=== PATIENT | male | born 1955 | race Caucasian/White ===

== ENCOUNTER → 2018-05-31 06:47 | Outpatient (CLI) | payer OTHER, SELFPAY ==
[2018-04-20 13:05] VITALS: BMI 24.4
--- NOTE | 2018-05-31 06:51 | ECHOD_ITS ---
Reason For Study: Arrhythmia Procedure This was a 2D Doppler, Color Flow transthoracic echocardiogram. The exam was of adequate technical quality. Exam performed in department. Left Ventricle Normal LV size. Left ventricular systolic function is normal. The estimated ejection fraction is 60 %. No evidence for diastolic dysfunction. No regional wall motion abnormalities noted. Right Ventricle Normal RV size. Normal systolic function. Atria Normal left atrium. Normal right atrium. No doppler evidence for ASD. Mitral Valve There is no mitral annular calcification. Normal mitral valve. Trivial mitral valve insufficiency. Tricuspid Valve Normal tricuspid valve. Mild tricuspid valve insufficiency. Right ventricular systolic pressure estimated to be 16 mmHg. Aortic Valve Trisinus/trileaflet aortic valve. Mild diffuse aortic valve thickening. Mild focal aortic valve calcification. Aortic sclerosis, no stenosis. Pulmonic Valve The pulmonic valve is not well visualized. Trivial pulmonic valve insufficiency. Great Vessels Borderline to mildy enlarged aortic root. Pericardium/Pleural No pericardial effusion. MMode/2D Measurements & Calculations LVIDd: 3.7 cm IVSd: 1.4 cm Ao root diam: 3.9 cm LVIDs: 2.2 cm LVPWd: 1.0 cm LA dimension: 3.1 cm RVDd: 3.6 cm FS: 41.2 % LAV(MOD-bp): 51.0 ml LA A4 area: 14.2 cm2 RA A4 area: 14.4 cm2 LAV(MOD-bp) Indexed: 25.9 ml/m2 LAV(MOD-sp2): 60.2 ml LAV(MOD-sp4): 35.1 ml Time Measurements MV dec time: 0.24 sec Doppler Measurements & Calculations MV E max mike: 65.8 cm/sec Lat Peak E' Mike: 5.4 cm/sec Med Peak E' Mike: 4.9 cm/sec MV A max mike: 91.7 cm/sec E/E' lat: 12.1 E/E' med: 13.4 MV E/A: 0.72 MV V2 max: 87.6 cm/sec MV P1/2t max mike: 71.0 cm/sec Ao V2 max: 94.9 cm/sec MV max P.1 mmHg MV P1/2t: 94.6 msec Ao max P.6 mmHg MV V2 mean: 56.2 cm/sec MV dec slope: 219.8 cm/sec2 Ao V2 mean: 71.1 cm/sec MV mean P.4 mmHg MVA(P1/2t): 2.3 cm2 Ao mean P.2 mmHg MV V2 VTI: 24.4 cm Ao V2 VTI: 22.2 cm LV V1 max: 77.6 cm/sec PA V2 max: 87.6 cm/sec TR max mike: 181.3 cm/sec LV V1 max P.4 mmHg TR max P.1 mmHg LV V1 mean P.1 mmHg LV V1 mean: 49.2 cm/sec LV V1 VTI: 17.1 cm Interpretation Summary Left ventricular systolic function is normal. The estimated ejection fraction is 60 %. Trivial mitral valve insufficiency. Mild tricuspid valve insufficiency. Aortic sclerosis, no stenosis. Trivial pulmonic valve insufficiency. Borderline to mildy enlarged aortic root. Right ventricular systolic pressure estimated to be 16 mmHg. No evidence for diastolic dysfunction. Ordering Physician: Olu Sparks Referring Physician: Olu Sparks Performed By: Gatito Cano RCS
--- NOTE | 2018-05-31 10:04 | STRESSREP ---
Stress Test Report Exercise myocardial perfusion stress test. 62-year-old man with a history of abnormal EKG. Stress protocol: Resting EKG demonstrates sinus rhythm with a first-degree AV block and Mobitz type I AV block. The patient exercised according to the regular Jorge protocol for total duration of 10 minutes the maximum heart rate attained was 144 bpm which was 92% of maximum predicted heart rate the maximum workload was 11.7 metabolic equivalents. The patient maintained sinus rhythm throughout the recording. At rest there were nonspecific ST-T wave changes noted with no meet the criteria for ischemia. At peak exercise there was approximately 2 [address] depression noted in lead V5 and V6 as well as lead III and aVF. The above is suggestive of ischemia. No clinical angina was noted. During recovery the ST changes became more upright. The resting blood pressure 146/90 with a peak blood pressure 172/80 mmHg. Myocardial perfusion protocol. 11.8 mCi of technetium 99m sestamibi was injected at rest. Patient exercised according to regular Jorge protocol for total duration of 10 minutes. At peak exercise 33.3 mCi of technetium 99m sestamibi was injected stress images were obtained stress and rest images were reconstructed and compared in the short axis vertical long and horizontal long axis. Gated images were also obtained. Perfusion SPECT analysis Review of his stress images demonstrate mildly reduced perfusion noted in the mid inferior wall. There is evidence of GI attenuation artifact however noted as well. The resting images demonstrate mild improvement though with a GI attenuation artifact. Ischemia in this area cannot be completely excluded. No previous infarct is noted. Gated SPECT analysis: The gated ejection fraction is noted to be 67%. Conclusion: Exercise myocardial perfusion stress test demonstrating the following: First-degree AV block with Mobitz type I AV block. Excellent functional capacity. EKG changes suggestive of ischemia at a high workload. Nuclear images with mild inferior ischemia likely.
== END ==
PROVIDERS: Family Provider Family Medicine; PCP Family Medicine; Referring Provider Internal Medicine Cardiovascular Disease; Visit Provider Internal Medicine Cardiovascular Disease
DX: I44.1 Atrioventricular block, second degree (principal); R94.31 Abnormal electrocardiogram [ECG] [EKG]; E78.2 Mixed hyperlipidemia; Q21.1 Atrial septal defect; R53.83 Other fatigue
CPT/HCPCS: 78452; 93017; 93306; A9500; A4216

== ENCOUNTER 2018-06-17 09:58 | Day surgery (SDC) | payer OTHER, SELFPAY ==
[2018-04-20 13:05] VITALS: BMI 24.4
[2018-06-08 14:03] VITALS: BMI 24.5
--- NOTE | 2018-06-08 15:14 | RAD_ITS ---
STUDY: X-RAY CHEST REASON FOR EXAM: Male, 62 years old. Pre-op evaluation TECHNIQUE: 2 views COMPARISON: March 07, 2016 FINDINGS: The lungs are clear and expanded. There is no demonstrated pleural abnormality. Normal size heart. Normal mediastinum and gabbi. Normal visualized pulmonary arteries. Normal visualized aortic arch and descending thoracic aorta. Normal visualized thoracic spine. Normal visualized ribs, clavicles, and shoulders. There is no demonstrated abnormality of the visualized soft tissue structures of the upper abdomen. RAD/Chest PA and Lateral IMPRESSION: Normal x-ray examination of the chest. No acute findings in the lungs Electronically Signed: Addison Caicedo MD at 4:17 EDT Tel , Service support ,
[2018-06-08 17:36] LABS: Hematocrit 40.2 % (40-54); Hemoglobin 13.6 g/dl (13.0-16.5); Mean Corp Hgb Conc 33.8 g/gl (32-36); Mean Corpuscular Volume 88.5 fL (80-94); Mean Platelet Vol. 10.3 fl (6.2-12.0); Platelet Count 208 K/mm3 (150-450); RBC Distribution Width CV 12.6 % (11.6-14.6); Red Blood Count 4.54 M/mm3 (4.6-6.2); White Blood Count 5.2 K/mm3 (4.4-11.0)
[2018-06-08 17:51] LABS: Scan Indicated on CBC? Y/N NO
[2018-06-08 17:53] LABS: International Normalized Ratio 1.1; Partial Thromboplast Time 27.2 Seconds (24.1-36.2); Prothrombin Time (Protime)PT. 13.8 SECONDS (11.7-14.9)
[2018-06-08 18:35] LABS: Anion Gap 5 (5-15); BUN 27 mg/dL (7-18); BUN/Creat Ratio 21.1 RATIO (10-20); Calcium,Total 8.6 mg/dL (8.5-10.1); Chloride 108 mmol/L (98-107); Creatinine, Serum 1.28 mg/dL (0.70-1.30); EST Glomerular Filtration Rate 60 mL/min (>60); Est Glom Filt Rate - Afr Amer 73 mL/min (>60); Glucose 114 mg/dL (74-106); Sodium Level 138 mmol/L (136-145)
[2018-06-15 10:37] VITALS: BMI 24.5
[2018-06-17] VITALS (20 sets, daily range): BP systolic 134–185; BP diastolic 70–97; PULSE 45–74; RESP 14–24; TEMP 36.6; O2SAT 98–100; BMI 23.6; BMI 24.5
--- NOTE | 2018-06-17 13:16 | CL.D_ITS ---
Patient Name: KIYA NICHOLS Study Date: 06/17/2018 Performing: Olu Sparks MD Ht: 70.86 inches 180 cm : 1955 Wt: 176.37 lbs 80 kg Age: 62 Gender: male BSA: 2 PROCEDURE(S) PERFORMED QP46-XXJ/COR/LV [id number] W OR WO PTCA, SINGLE CORONARY ARTERY CLINICAL PROFILE AND INDICATIONS Indications: Suspected CAD Heart Failure: None Stress/Imaging Stress Test w/SPECT MPI: Yes Result: PositiveStress Test with SPECT MPI: Positive Angina Classification Anginal Classification w/in 2 Weeks: CCS III CAD Presentations: Other: Indigestion; Back Discomfort; Fatigue CONCLUSIONS Normal Left Ventricular End Diastolic Pressure Normal LV size, wall motion,and systolic function LVEF: by LV gram 65 % [place] Multivessel CAD Comment: RCA: catheter engagement: decreased arterial wave form / pressure damping RECOMMENDATIONS Risk factor modification Medical therapy Referred for immediate PCI DESCRIPTION OF PROCEDURE The patient arrived to the procedure lab. The risks and benefits of the procedure as well as a full d escription of our services here and current unavailability of surgical backup were fully explained to the patient and/or their significant other prior to the catheterization. The Timeout was completed, verifying the correct patient and procedure. The patient's procedural site was prepped and draped in the usual fashion. Local anesthetic was given subcutaneously to right radial region with Lidocaine 2% . Using a modified Seldinger technique, arterial access was obtained via the right radial artery, a 6 Fr sheath was inserted. Right Coronary Artery selective angiography was then performed in multiple v iews using a 5 Fr. 4.0 [place] catheter. Left Coronary Artery selective angiography was performed in mu ltiple views using a 5 Fr. 4.0 [place] catheter. Left Coronary Artery selective angiography was perform ed in multiple views using a 5 Fr. JL3.5 catheter. Left Ventriculography was performed in [place] projection using a 5 Fr. Pigtail catheter. LV to AO pullback pressures were then recorded.The art erial sheath was pulled and a TR Band was applied for hemostasis w/ 16ml air CORONARY ANGIOGRAPHY DOMINANCE: Left Dominant LEFT HEART ASSESSMENT Left Ventricular Ejection Fraction: by LV Gram 65 % Normal LV wall motion Normal Left Ventricular End Diastolic Pressure LVEDP: 6 mmHg LEFT MAIN: Proximal: [place] / Eccentric: 25 % Stenosis LEFT ANTERIOR DECENDING ARTERY: Mild luminal irregularities MID LAD: Eccentric: Hazy: 85 % Stenosis SEPTAL: Ostial: Hazy: 90 % Stenosis CIRCUMFLEX ARTERY: Mild luminal irregularities OM 1: Mid - 25 % Stenosis RIGHT CORONARY ARTERY: PROX RCA: 50 - 75 % Stenosis MID RCA: Diffuse: 50 - 75 % Stenosis, Hazy: 85 % Stenosis VALVE FINDINGS: Normal Aortic Valve function Normal Mitral Valve function AORTIC ROOT: Angiographically normal COMPLICATIONS No Complications PROCEDURE MEDICATIONS Fentanyl 50 mcg IV Versed 1 mg IV Oxygen: 2 L/min via nasal cannula Brilinta 180 mg PO 06/17/2018 12:39:11 Angiomax Bolus 12 ml's 06/17/2018 12:39:37 Angiomax 5mg / ml @ 28 ml/hr IV @ 06/17/2018 12:40:08 Heparin diluted in 23cc Heparinized saline. Patient given 10cc IA of this solution. 06/17/2018 11:40: 22 Nitro 200 mcg IC 06/17/2018 13:00:53 Verapamil 2.5mg, Ntg 100mcgs, 2000 units of Heparin diluted in 23cc Heparinized saline. Patient give n 10cc IA of this solution. 06/17/2018 11:40:22 SUMMARY OF HEMODYNAMIC DATA Time AIR REST ECG 10:26:00 ECG 11:22:29 AO 124/62 (84) SA 11:54:38 LV 141/-9, 5 12:13:23 LV 145/-6, 6 12:13:29 LV 140/-6, 7 12:14:45 LVp 148/-4, 9 12:14:59 AOp 149/59 (96) 12:15:05 Signed By Olu Sparks MD On 06/17/2018 13:16:00 Olu Sparks MD
[2018-06-17] MEDS: 0.9% Normal Saline 1,000 ML 75 ML IV (14:00)
--- NOTE | 2018-06-17 14:34 | CL.I_ITS ---
Patient Name: KIYA NICHOLS Study Date: 06/17/2018 Performing: Eloy Calhoun MD Ht: 70.87 inches 180 cm : 1955 Wt: 176.37 lbs 80 kg Age: 62 Gender: male BSA: 2 PROCEDURE(S) PERFORMED [id number] W OR WO PTCA, SINGLE CORONARY ARTERY CLINICAL PROFILE AND CO-MORBIDITIES Indications: Suspected CAD Heart Failure: None Stress/Imaging Stress Test w/SPECT MPI: Yes Result: Positive Stress Test with SPECT MPI: Positive Angina Classification Anginal Classification w/in 2 Weeks: CCS III CAD Presentations: Other: Indigestion; Back Discomfort; Fatigue CONCLUSIONS Successful PTCA/LUCIO Mid LAD with a 2.5x17 Elunir LUCIO RECOMMENDATIONS Highly recommend quitting all tobacco products Follow up with primary computer aided design drafter Risk factor modification ASA Indefinitley Plavix for at least 12 months Routine post interventional care Refer for Outpatient Cardiac Rehab Manual sheath removal per protocol DESCRIPTION OF PROCEDURE The patient arrived to the procedure lab. The risks and benefits of the procedure as well as a full d escription of our services here and current unavailability of surgical backup were fully explained to the patient and/or their significant other prior to the catheterization. The Timeout was completed, verifying the correct patient and procedure. The patient's procedural site was prepped and draped in the usual fashion. Local anesthetic was given subcutaneously to right radial region with Lidocaine 2% Using a modified Seldinger technique,arterial access was obtained via the right radial artery, a 6Fr sheath was inserted. Right Coronary Artery selective angiography was then performed in multiple view s using a 5 Fr. 4.0 [place] catheter. Left Coronary Artery selective angiography was performed in multi ple views using a 5 Fr. 4.0 [place] catheter. Left Coronary Artery selective angiography was performed in multiple views using a 5 Fr. JL3.5 catheter. Left Ventriculography was performed in [place] projection using a 5 Fr. Pigtail catheter. LV to AO pullback pressures were then recorded.The images were reviewed and options discussed. A decision was then made to proceed with an Intervention, IVUS o r other adjunct procedure. JL 3.5 Guide catheter was inserted and engaged into the LCA. BMW Guide wire was advanced to the L AD. Angiogram performed pre balloon dilatation. Emerge 2.50x12 Balloon catheter was inserted. PTCA ba lloon inflated at 12 atms for 25 secs. Angiogram performed post balloon dilatation. Elunir 2.5x17 Doug g Eluting stent was inserted. Angiogram performed post stent deployment. The arterial sheath was pu lled and a TR Band was applied for hemostasis w/ 16ml air INTERVENTION INFORMATION LESION SITE: LAD (Mid) Lesion Complexity: Non-High/Non-C, chronic total occlusion: No, lesion at bifurcation: No, thrombus p resent: No, lesion length: 10 mm, culprit lesion: Yes Pre Stenosis: 85% % Pre intervention ELICIA flow: 3 PROCEDURE: Mid LAD- Drug Eluting Stent with pre dilatation. Post Stenosis: 0 % Post intervention ELICIA flow: 3 Lesion Devices: Juanjo Sci EMERGE MR 2.50x12 BALLOON Cardinal Elunir LUCIO RX 2.5x17 COMPLICATIONS No Complications PROCEDURE MEDICATIONS Fentanyl 50 mcg IV Versed 1 mg IV Oxygen: 2 L/min via nasal cannula Brilinta 180 mg PO 06/17/2018 12:39:11 Angiomax Bolus 12 ml's 06/17/2018 12:39:37 Angiomax 5mg / ml @ 28 ml/hr IV @ 06/17/2018 12:40:08 Heparin diluted in 23cc Heparinized saline. Patient given 10cc IA of this solution. 06/17/2018 11:40: 22 Nitro 200 mcg IC 06/17/2018 13:00:53 Verapamil 2.5mg, Ntg 100mcgs, 2000 units of Heparin diluted in 23cc Heparinized saline. Patient give n 10cc IA of this solution. 06/17/2018 11:40:22 SUMMARY OF HEMODYNAMIC DATA Time AIR REST ECG 10:26:00 ECG 11:22:29 AO 124/62 (84) SA 11:54:38 LV 141/-9, 5 12:13:23 LV 145/-6, 6 12:13:29 LV 140/-6, 7 12:14:45 LVp 148/-4, 9 12:14:59 AOp 149/59 (96) 12:15:05 RM AIR REST 13:15:17 Signed By Eloy Calhoun MD On 06/17/2018 14:33:42 Eloy Calhoun MD
[2018-06-17 14:51] LABS: Bedside Glucose 107 mg/dL (70-110)
--- NOTE | 2018-06-17 15:00 | EKG12_ITS ---
Test Reason : CHEST PRESSURE Blood Pressure : / mmHG Vent. Rate : 063 BPM Atrial Rate : 063 BPM P-R Int : 314 ms QRS Dur : 070 ms QT Int : 396 ms P-R-T Axes : 052 013 020 degrees QTc Int : 405 ms Sinus rhythm with 1st degree A-V block Otherwise normal ECG Confirmed by TAMIKA LEYVA, OLU ([id number]), newspaper photo editor DAYA PATRICIA ([id number]) on 06/27/2018 12:09:10 PM Referred By: Olu Lundberg Confirmed By:OLU LUNDBERG MD
[2018-06-17] MEDS: Losartan Potassium 25 MG Tablet PO (15:39)
--- NOTE | 2018-06-17 15:43 | CRPHASE1 ---
Patient Communication PHII Cardiac Rehab Discussed with Patient:: Yes Guide to Cardiac Rehab Given to Patient:: Yes Cardiac Rehab Facility Choice List Given to Patient:: Yes Choice Program [facility] CR PHII:: Communication Given to CR - pt chooses [facility] Gis Developer:: Olu Sparks Phase II Cardiac Rehab:: No - pending Sessions:: 36 sessions - 3 days/wk, 12 weeks Risk Factors/Lifestyle Hx Diabetes Mellitus Type 2: Yes Hx Dyslipidemia: Yes Height: 1.8 m Weight:: 79.832 kg BMI: 24.5 Family History: Family History (Last Reviewed 04/20/18 @ 13:12 by Gemma Gramajo) Mother CHF (congestive heart failure) CAD (coronary artery disease) Brother Hypertension Diabetes Myocardial infarction Phase I Education Given On:: [place], Nutrition, Antiplatelet medication, CHF, Smoking cessation, Diabetes - Type I, Diabetes - Type II Issues Affecting Care:: None Knowledge of Condition:: Yes Hospital Course Cardiac Cath Date:: 06/17/18 Medical/Surgical History Diabetes Type II:: Yes Hypertension:: Yes Dyslipidemia:: Yes PTCA:: Yes Discharge/Home/Social Eval Marital Status: Cardiac Rehabilitation Info Cardiac Rehabilitation Program Information: Cardiac Rehabilitation is important for patients like you who are recovering from a heart problem. Cardiac rehabilitation programs are recognized as integral to the continued care of the patient with coronary heart disease. The cardiac rehabilitation program is designed to optimize a patient's physical, psychological, and social functioning. Health customer care agent work in cardiac rehabilitation programs and assist you with getting the treatments you need to get stronger and healthier - like exercise, healthy eating habits, and medications. Cardiac rehabilitation has been show to help people with heart problems live longer and have better life enjoyment than people who do not go to cardiac rehabilitation. Please contact the Cardiac Rehabilitation Program at [facility] at in two weeks if you have not heard from them.
--- NOTE | 2018-06-17 15:46 | CRPHASE1_ITS ---
Addendum entered and electronically signed by Enrique Ramos CRT, CUSTOMER SUCCESS INTERN, BS 06/28/18 13:35: Patient was referred to CR Phase II prior to discharge from [facility] following his PCI intervention and is actively enrolled in CR at this present time. Original Note: Patient Communication PHII Cardiac Rehab Discussed with Patient:: Yes Guide to Cardiac Rehab Given to Patient:: Yes Cardiac Rehab Facility Choice List Given to Patient:: Yes Choice Program [facility] CR PHII:: Communication Given to CR - pt chooses [facility] Nascar Driver:: Olu Sparks Refer Phase II Cardiac Rehab:: No - pending Sessions:: 36 sessions - 3 days/wk, 12 weeks Risk Factors/Lifestyle Hx Diabetes Mellitus Type 2: Yes Hx Dyslipidemia: Yes Height: 1.8 m Weight:: 79.832 kg BMI: 24.5 Family History: Family History (Last Reviewed 04/20/18 @ 13:12 by Gemma Gramajo) Mother CHF (congestive heart failure) CAD (coronary artery disease) Brother Hypertension Diabetes Myocardial infarction Phase I Education Given On:: [place], Nutrition, Antiplatelet medication, CHF, Smoking cessation, Diabetes - Type I, Diabetes - Type II Issues Affecting Care:: None Knowledge of Condition:: Yes Hospital Course Cardiac Cath Date:: 06/17/18 Medical/Surgical History Diabetes Type II:: Yes Hypertension:: Yes Dyslipidemia:: Yes PTCA:: Yes Discharge/Home/Social Eval Marital Status: Cardiac Rehabilitation Info Cardiac Rehabilitation Program Information: Cardiac Rehabilitation is important for patients like you who are recovering from a heart problem. Cardiac rehabilitation programs are recognized as integral to the continued care of the patient with coronary heart disease. The cardiac rehabilitation program is designed to optimize a patient's physical, psychological, and social functioning. Health rn palliative care work in cardiac rehabilitation programs and assist you with getting the treatments you need to get stronger and healthier - like exercise, healthy eating habits, and medications. Cardiac rehabilitation has been show to help people with heart problems live longer and have better life enjoyment than people who do not go to cardiac rehabilitation. Please contact the Cardiac Rehabilitation Program at [facility] at in two weeks if you have not heard from them.
--- NOTE | 2018-06-17 15:46 | CRPH1.INSTRU ---
General Education CAD and cardiac anatomy and function:: Patient communicates acknowledgment Explanation of diagnoses and procedures:: Patient communicates acknowledgment Sign/Symptoms of NH:: Patient communicates acknowledgment Antiplatelet therapy: Patient communicates acknowledgment Proper use of NTG-SL: Not instructed Emergency procedures and activation of EMS: Patient communicates acknowledgment Compliance of all prescribed medications: Patient communicates acknowledgment Smoking Nicotine/Smoking Response Code:: Patient communicates acknowledgment Dyslipidemia Dyslipidemia Response Code:: Patient communicates acknowledgment Overweight/Obesity Overweight/Obesity:: Patient communicates acknowledgment Hypertension Recommendations Include:: Maintain BP <130/85, BP <130/80 if diabetic, DASH dietary guidelines, Decrease/maintain normal body weight, Moderation of ETOH Hypertension:: Patient communicates acknowledgment Heart Disease Heart Disease Response Code:: Patient communicates acknowledgment Diabetes Patient Diabetes Risk Factors Are:: Elevated blood sugars Recommendations Include:: Maintain fasting blood sugars 70-110 md/dL, Maintain HgbA1c of 6% or less, Monitor blood sugar as prescribed, Diabetic dietary guidelines, Decrease/maintain body weight Diabetes:: Patient communicates acknowledgment Metabolic Syndrome Metabolic Syndrome Response Code:: Patient communicates acknowledgment Sedentary Sedentary Response Code:: Patient communicates acknowledgment Stress Stress Response Code:: Patient communicates acknowledgment
[2018-06-17] MEDS: Isosorbide Mononitrate 30 MG Tablet PO (17:05)
[2018-06-17] MEDS: amLODIPine 2.5 MG Tablet PO (21:20)
[2018-06-17 21:25] LABS: Bedside Glucose 134 mg/dL (70-110)
[2018-06-18] VITALS (16 sets, daily range): BP systolic 112–143; BP diastolic 49–77; PULSE 34–67; RESP 11–20; TEMP 36.4–36.7; O2SAT 97–100
[2018-06-18 04:38] LABS: Anion Gap 8 (5-15); BUN 24 mg/dL (7-18); BUN/Creat Ratio 18.3 RATIO (10-20); Calcium,Total 8.3 mg/dL (8.5-10.1); Chloride 112 mmol/L (98-107); Creatinine, Serum 1.31 mg/dL (0.70-1.30); EST Glomerular Filtration Rate 58 mL/min (>60); Est Glom Filt Rate - Afr Amer 71 mL/min (>60); Estimated Creatinine Clearance 60.67 ml/min; Glucose 142 mg/dL (74-106); Potassium 4.1 mmol/L (3.5-5.1); Sodium Level 143 mmol/L (136-145)
[2018-06-18 04:44] LABS: Hematocrit 34.7 % (40-54); Hemoglobin 11.9 g/dl (13.0-16.5)
--- NOTE | 2018-06-18 05:55 | EKG12_ITS ---
Test Reason : AM Blood Pressure : / mmHG Vent. Rate : 044 BPM Atrial Rate : 057 BPM P-R Int : 000 ms QRS Dur : 070 ms QT Int : 430 ms P-R-T Axes : 057 011 028 degrees QTc Int : 367 ms Sinus bradycardia with 2nd degree A-V block (Mobitz I) Abnormal ECG Confirmed by TAMIKA LEYVA, OLU ([id number]), photo editor DAYA PATRICIA ([id number]) on 06/27/2018 12:06:57 PM Referred By: Olu Lundberg Confirmed By:OLU LUNDBERG MD
[2018-06-18] MEDS: Pantoprazole Sodium 40 MG Tablet PO (07:38)
[2018-06-18 08:05] LABS: Bedside Glucose 125 mg/dL (70-110)
[2018-06-18] MEDS: Aspirin 81 MG TAB.CHEW PO (09:09)
[2018-06-18] MEDS: Clopidogrel Bisulfate 75 MG Tablet PO (09:10)
[2018-06-18] MEDS: Isosorbide Mononitrate 30 MG Tablet PO (09:11)
--- NOTE | 2018-06-18 10:00 | EKG12_ITS ---
Test Reason : POST PCI Blood Pressure : / mmHG Vent. Rate : 044 BPM Atrial Rate : 051 BPM P-R Int : 000 ms QRS Dur : 078 ms QT Int : 418 ms P-R-T Axes : 065 047 051 degrees QTc Int : 357 ms Sinus bradycardia with 2nd degree A-V block (Mobitz I) Abnormal ECG Confirmed by TAMIKA LEYVA, OLU ([id number]), editor map DAYA PATRICIA ([id number]) on 06/27/2018 12:09:55 PM Referred By: Olu Lundberg Confirmed By:OLU LUNDBERG MD
[2018-06-18] MEDS: Losartan Potassium 50 MG Tablet PO (10:42)
--- NOTE | 2018-06-18 11:30 | PCM.DC ---
- Discharge Diagnoses Current Active Problems: Current Active and Chronic Problems (Last Updated 06/17/18 @ 18:41 by Kirstin Khan) Atherosclerotic heart disease of [place] coronary artery without angina pectoris (Chronic) Successful PTCA/LUCIO Mid LAD with a 2.5x[address]. Calhoun @ [facility] 06/17/2018 History of left heart catheterization (Chronic 06/17/18) Per PFM @ [facility] Stented coronary artery (Chronic 06/17/18) Successful PTCA/LUCIO Mid LAD with a 2.5x[address]un[address]. Calhoun @ [facility] 06/17/18 Reason(s) for Visit for Discharge Instructions: Abnormal stress test. Diagnostic cardiac catheterization You will use the following diet at home:: Cardiac Your food should be the consistency of: Regular Discharge Activity: May Drive - Until 06-20-18, May Shower - Today, May Take a Tub Bath - May not take a tub bath for 7 days May resume sexual activity in: 2 weeks Weight Bearing Status: - - Avoid heavy exertional activity with respect to the right upper extremity until 06-20-18 Call your doctor if your incision/area has: Continuous Slow Oozing, Sudden Increased Bleeding, Increased Pain/ Swelling, Increased Redness, Foul Smelling Discharge Call your doctor if you observe: Fever of 101 or Higher, Shortness of breath, Dizziness, Fainting spells, Chest pain Change Dressing in (Days):: 1 Remove Dressing in (days):: 1 Cleanse incision/area with: Soap & Water Pending Tests on Discharge: Outpatient cardiovascular office to confirm outpatient cardiovascular visit and outpatient cardiac rehabilitation Allergies/Adverse Reactions: Allergies etodolac [Etodolac] Allergy (Verified 06/08/18 14:10) Hives metformin Adverse Reaction (Verified 06/08/18 14:10) Nausea Medications to take at Discharge Saxagliptin Hydrochloride [Onglyza] 5 mg PO DAILY 07/26/13 Meloxicam [Mobic] 15 mg PO DAILY 03/07/16 aspirin 81 mg tablet,delayed release 81 mg PO DAILY 04/19/18 clopidogrel 75 mg tablet 75 mg PO DAILY #30 tab 06/08/18 Meloxicam 15 mg PO DAILY 06/17/18 Aspirin [Aspirin, Baby] 81 mg PO DAILY@0800 tab.chew 06/18/18 Clopidogrel Bisulfate [Plavix] 75 mg PO DAILY tablet 06/18/18 Isosorbide Mononitrate [Imdur] 30 mg PO DAILY #30 tablet 06/18/18 Losartan Potassium [Cozaar] 50 mg PO DAILY #30 tablet 06/18/18 Pantoprazole Sodium [Protonix] 40 mg PO DAILY #30 tablet 06/18/18 Saxagliptin Hydrochloride [Onglyza] 5 mg PO DAILY tablet 06/18/18 The following prescriptions were given: Isosorbide Mononitrate [Imdur] 30 mg PO DAILY #30 tablet Losartan Potassium [Cozaar] 50 mg PO DAILY #30 tablet Pantoprazole Sodium [Protonix] 40 mg PO DAILY #30 tablet Orders to be completed after discharge: Phase II, Outpatient Cardiac Rehab Location: None Selected Primary Care Physician: Micheal Bruce III, MD [Primary Care Provider] - Test Results: Test results from this visit will be discussed in further detail at your follow-up appointment, if applicable. Please Follow Up With: Olu Sparks MD When: As scheduled
--- NOTE | 2018-06-18 11:33 | DCINST_ITS ---
- Discharge Diagnoses Current Active Problems: Current Active and Chronic Problems (Last Updated 06/17/18 @ 18:41 by Kirstin Khan) Atherosclerotic heart disease of [place] coronary artery without angina pectoris (Chronic) Successful PTCA/LUCIO Mid LAD with a 2.5x[address] Calhoun @ [facility] 06/17/2018 History of left heart catheterization (Chronic 06/17/18) Per PFM @ [facility] Stented coronary artery (Chronic 06/17/18) Successful PTCA/LUCIO Mid LAD with a 2.5x[address] Calhoun @ [facility] 06/17/18 Reason(s) for Visit for Discharge Instructions: Abnormal stress test. Diagnostic cardiac catheterization You will use the following diet at home:: Cardiac Your food should be the consistency of: Regular Discharge Activity: May Drive - Until 06-20-18, May Shower - Today, May Take a Tub Bath - May not take a tub bath for 7 days May resume sexual activity in: 2 weeks Weight Bearing Status: - - Avoid heavy exertional activity with respect to the right upper extremity until 06-20-18 Call your doctor if your incision/area has: Continuous Slow Oozing, Sudden Increased Bleeding, Increased Pain/ Swelling, Increased Redness, Foul Smelling Discharge Call your doctor if you observe: Fever of 101 or Higher, Shortness of breath, Dizziness, Fainting spells, Chest pain Change Dressing in (Days):: 1 Remove Dressing in (days):: 1 Cleanse incision/area with: Soap & Water Pending Tests on Discharge: Outpatient cardiovascular office to confirm outp atient cardiovascular visit and outpatient cardiac rehabilitation Allergies/Adverse Reactions: Allergies etodolac [Etodolac] Allergy (Verified 06/08/18 14:10) Hives metformin Adverse Reaction (Verified 06/08/18 14:10) Nausea Medications to take at Discharge Saxagliptin Hydrochloride [Onglyza] 5 mg PO DAILY 07/26/13 Meloxicam [Mobic] 15 mg PO DAILY 03/07/16 aspirin 81 mg tablet,delayed release 81 mg PO DAILY 04/19/18 clopidogrel 75 mg tablet 75 mg PO DAILY #30 tab 06/08/18 Meloxicam 15 mg PO DAILY 06/17/18 Aspirin [Aspirin, Baby] 81 mg PO DAILY@0800 tab.chew 06/18/18 Clopidogrel Bisulfate [Plavix] 75 mg PO DAILY tablet 06/18/18 Isosorbide Mononitrate [Imdur] 30 mg PO DAILY #30 tablet 06/18/18 Losartan Potassium [Cozaar] 50 mg PO DAILY #30 tablet 06/18/18 Pantoprazole Sodium [Protonix] 40 mg PO DAILY #30 tablet 06/18/18 Saxagliptin Hydrochloride [Onglyza] 5 mg PO DAILY tablet 06/18/18 The following prescriptions were given: Isosorbide Mononitrate [Imdur] 30 mg PO DAILY #30 tablet Losartan Potassium [Cozaar] 50 mg PO DAILY #30 tablet Pantoprazole Sodium [Protonix] 40 mg PO DAILY #30 tablet Orders to be completed after discharge: Phase II, Outpatient Cardiac Rehab Location: None Selected Primary Care Physician: Micheal Bruce III, MD [Primary Care Provider] - Test Results: Test results from this visit will be discussed in further detail at your follow- up appointment, if applicable. Please Follow Up With: Olu Sparks MD When: As scheduled
--- NOTE | 2018-06-18 11:34 | PCM.DC.SUM ---
Discharge Date and Diagnosis Date of Admission: 06/17/18 Date of Discharge: 06/18/18 - Primary Discharge Diagnosis Abnormal stress test; CAD; status post LAD PCI - Secondary Discharge Diagnosis Chronic Problems (Last Updated 06/17/18 @ 18:42 by Kirstin Khan) Atherosclerotic heart disease of [place] coronary artery without angina pectoris (Chronic) Successful PTCA/LUCIO Mid LAD with a 2.5x[address] Calhoun @ [facility] 06/17/2018 History of left heart catheterization (Chronic 06/17/18) Per PFM @ [facility] Stented coronary artery (Chronic 06/17/18) Successful PTCA/LUCIO Mid LAD with a 2.5x[address] Calhoun @ [facility] 06/17/18 Hypertension (Chronic) Fatigue (Chronic) Patent foramen ovale (Chronic) Type 2 diabetes mellitus (Chronic) Mixed hyperlipidemia (Chronic) Mobitz type 1 second degree AV block (Chronic) Diabetic neuropathy (Chronic) Hospital Course and Treatment Operations: None Procedures: Cardiac catheterization, - - Cardiac intervention: LAD PCI/LUCIO Summary of Care Provided: The patient is a 62 year old presented for evaluation of an abnormal exercise tolerance test/nuclear imaging. The patient underwent diagnostic cardiac catheterization on 06-17-18. The patient was noted to have overall preserved left ventricular size, wall motion, and systolic function. The patient was noted to have angiographically significant appearing LAD disease and RCA disease-small nondominant vessel. The patient subsequently underwent LAD PCI/LUCIO. The patient resided in the ICU overnight with no obvious adverse post procedure related events. On 06-18-18 it was felt the patient could be released home for continued outpatient cardiac rehabilitation and outpatient cardiovascular follow-up. Of note, the patient does note additional symptoms compatible with gastroesophageal reflux disorder. Thus based upon the patient's clinical course it was felt that he should be referred to gastroenterology for further evaluation and care. [] Subjective: The patient is awake and alert and in no acute distress. - Physical Exam General: Alert, Oriented x3, Cooperative, No apparent distress HEENT: Atraumatic, PERRLA, EOMI, Normocephalic Oral: Moist Mucosa Neck: Supple, No JVD Lungs: Clear to auscultation Cardiovascular: Regular rate, Regular Rhythm, Normal S1, Normal S2 Abdomen: Bowel Sounds Present, Soft, Non Tender Extremities: No clubbing, No cyanosis, No edema Psych/Mental Status: Normal Affect Comment: Right radial artery area: Pulses 2+/4+; no bruit; no hematoma Vital Signs Temp Pulse Resp BP Pulse Ox 98 F 60 14 124/61 H 97 06/18/18 08:00 06/18/18 10:00 06/18/18 10:00 06/18/18 10:00 06/18/18 10:00 Oxygen Delivery Method Room Air Weight: 175 lb 4.28 oz Body Mass Index (BMI) 23.6 Finger Stick Blood Glucose 131 Intake and Output for Last 24 Hours 06/16/18 06/17/18 06/18/18 23:59 23:59 23:59 Intake Total 1400 / 1400 349.5 / 349.5 Balance 1400 / 1400 349.5 / 349.5 Laboratory Tests Past 24 Hrs 06/18/18 06/18/18 04:15 04:15 Hgb 11.9 L Hct 34.7 L Sodium 143 Potassium 4.1 Chloride 112 H Carbon Dioxide 23.0 Anion Gap 8 BUN 24 H Creatinine 1.31 H Estim Creat Clear Calc 60.67 Est GFR (MDRD) Af Amer 71 Est GFR (MDRD) Non-Af 58 L BUN/Creatinine Ratio 18.3 Glucose 142 H Calcium 8.3 L POC Glucose 06/18/18 06/17/18 06/17/18 07:42 21:18 14:46 POC Glucose 125 H 134 H 107 Discharge Activity: May Drive - Until 06-20-18, May Shower - Today, May Take a Tub Bath - May not take a tub bath for 7 days May resume sexual activity in: 2 weeks Weight Bearing Status: - - Avoid heavy exertional activity with respect to the right upper extremity until 06-20-18 Call your doctor if your incision/area has: Continuous Slow Oozing, Sudden Increased Bleeding, Increased Pain/ Swelling, Increased Redness, Foul Smelling Discharge Call your doctor if you observe: Fever of 101 or Higher, Shortness of breath, Dizziness, Fainting spells, Chest pain Change Dressing in (Days):: 1 Remove Dressing in (days):: 1 Cleanse incision/area with: Soap & Water Home Medications: Medications to take at Discharge Saxagliptin Hydrochloride [Onglyza] 5 mg PO DAILY 07/26/13 Meloxicam [Mobic] 15 mg PO DAILY 03/07/16 aspirin 81 mg tablet,delayed release 81 mg PO DAILY 04/19/18 clopidogrel 75 mg tablet 75 mg PO DAILY #30 tab 06/08/18 Meloxicam 15 mg PO DAILY 06/17/18 Aspirin [Aspirin, Baby] 81 mg PO DAILY@0800 tab.chew 06/18/18 Clopidogrel Bisulfate [Plavix] 75 mg PO DAILY tablet 06/18/18 Isosorbide Mononitrate [Imdur] 30 mg PO DAILY #30 tablet 06/18/18 Losartan Potassium [Cozaar] 50 mg PO DAILY #30 tablet 06/18/18 Pantoprazole Sodium [Protonix] 40 mg PO DAILY #30 tablet 06/18/18 Saxagliptin Hydrochloride [Onglyza] 5 mg PO DAILY tablet 06/18/18 Following Prescrptions Were Given to Patient: Isosorbide Mononitrate [Imdur] 30 mg PO DAILY #30 tablet Losartan Potassium [Cozaar] 50 mg PO DAILY #30 tablet Pantoprazole Sodium [Protonix] 40 mg PO DAILY #30 tablet Other Amb Orders: Phase II, Outpatient Cardiac Rehab Location: None Selected Primary Care Physician: Micheal Bruce III, MD [Primary Care Provider] - Please Follow Up With: Olu Sparks MD When: As scheduled Disposition: Home Minutes spent on discharge:: 45 Patient Condition:: Stable Medical Necessity - Tobacco Use Smoking Status: Former smoker Meaningful Use Info Meaningful Use Diagnoses (Choose all that apply): None applicable
--- NOTE | 2018-06-18 11:37 | DS.PCM_ITS ---
Discharge Date and Diagnosis Date of Admission: 06/17/18 Date of Discharge: 06/18/18 - Primary Discharge Diagnosis Abnormal stress test; CAD; status post LAD PCI - Secondary Discharge Diagnosis Chronic Problems (Last Updated 06/17/18 @ 18:42 by Kirstin Khan) Atherosclerotic heart disease of [place] coronary artery without angina pectoris (Chronic) Successful PTCA/LUCIO Mid LAD with a 2.5x[address] Calhoun @ [facility] 06/17/2018 History of left heart catheterization (Chronic 06/17/18) Per PFM @ [facility] Stented coronary artery (Chronic 06/17/18) Successful PTCA/LUCIO Mid LAD with a 2.5x[address] per [address]. Calhoun @ [facility] 06/17/18 Hypertension (Chronic) Fatigue (Chronic) Patent foramen ovale (Chronic) Type 2 diabetes mellitus (Chronic) Mixed hyperlipidemia (Chronic) Mobitz type 1 second degree AV block (Chronic) Diabetic neuropathy (Chronic) Hospital Course and Treatment Operations: None Procedures: Cardiac catheterization, - - Cardiac intervention: LAD PCI/LUCIO Summary of Care Provided: The patient is a 62 year old presented for evaluation of an abnormal exercise tolerance test/nuclear imaging. The patient underwent diagnostic cardiac cat heterization on 06-17-18. The patient was noted to have overall preserved left ventricular size, wall motion, and systolic function. The patient was noted to have angiographically significant appearing LAD disease and RCA disease-small nondominant vessel. The patient subsequently underwent LAD PCI/LUCIO. The patient resided in the ICU overnight with no obvious adverse post procedure related events. On 06-18-18 it was felt the patient could be released home for continued outpatient cardiac rehabilitation and outpatient cardiovascular follow-up. Of note, the patient does note additional symptoms compatible with gastroesophageal reflux disorder. Thus based upon the patient's clinical course it was felt that he should be referred to gastroenterology for further evaluation and care. [] Subjective: The patient is awake and alert and in no acute distress. - Physical Exam General: Alert, Oriented x3, Cooperative, No apparent distress HEENT: Atraumatic, PERRLA, EOMI, Normocephalic Oral: Moist Mucosa Neck: Supple, No JVD Lungs: Clear to auscultation Cardiovascular: Regular rate, Regular Rhythm, Normal S1, Normal S2 Abdomen: Bowel Sounds Present, Soft, Non Tender Extremities: No clubbing, No cyanosis, No edema Psych/Mental Status: Normal Affect Comment: Right radial artery area: Pulses 2+/4+; no bruit; no hematoma Vital Signs Temp Pulse Resp BP Pulse Ox 98 F 60 14 124/61 H 97 06/18/18 08:00 06/18/18 10:00 06/18/18 10:00 06/18/18 10:00 06/18/18 10:00 Oxygen Delivery Method Room Air Weight: 175 lb 4.28 oz Body Mass Index (BMI) 23.6 Finger Stick Blood Glucose 131 Intake and Output for Last 24 Hours 06/16/18 06/17/18 06/18/18 23:59 23:59 23:59 Intake Total 1400 / 1400 349.5 / 349.5 Balance 1400 / 1400 349.5 / 349.5 Laboratory Tests Past 24 Hrs 06/18/18 06/18/18 04:15 04:15 Hgb 11.9 L Hct 34.7 L Sodium 143 Potassium 4.1 Chloride 112 H Carbon Dioxide 23.0 Anion Gap 8 BUN 24 H Creatinine 1.31 H Estim Creat Clear Calc 60.67 Est GFR (MDRD) Af Amer 71 Est GFR (MDRD) Non-Af 58 L BUN/Creatinine Ratio 18.3 Glucose 142 H Calcium 8.3 L POC Glucose 06/18/18 06/17/18 06/17/18 07:42 21:18 14:46 POC Glucose 125 H 134 H 107 Discharge Activity: May Drive - Until 06-20-18, May Shower - Today, May Take a Tub Bath - May not take a tub bath for 7 days May resume sexual activity in: 2 weeks Weight Bearing Status: - - Avoid heavy exertional activity with respect to the right upper extremity until 06-20-18 Call your doctor if your incision/area has: Continuous Slow Oozing, Sudden Increased Bleeding, Increased Pain/ Swelling, Increased Redness, Foul Smelling Discharge Call your doctor if you observe: Fever of 101 or Higher, Shortness of breath, Dizziness, Fainting spells, Chest pain Change Dressing in (Days):: 1 Remove Dressing in (days):: 1 Cleanse incision/area with: Soap & Water Home Medications: Medications to take at Discharge Saxagliptin Hydrochloride [Onglyza] 5 mg PO DAILY 07/26/13 Meloxicam [Mobic] 15 mg PO DAILY 03/07/16 aspirin 81 mg tablet,delayed release 81 mg PO DAILY 04/19/18 clopidogrel 75 mg tablet 75 mg PO DAILY #30 tab 06/08/18 Meloxicam 15 mg PO DAILY 06/17/18 Aspirin [Aspirin, Baby] 81 mg PO DAILY@0800 tab.chew 06/18/18 Clopidogrel Bisulfate [Plavix] 75 mg PO DAILY tablet 06/18/18 Isosorbide Mononitrate [Imdur] 30 mg PO DAILY #30 tablet 06/18/18 Losartan Potassium [Cozaar] 50 mg PO DAILY #30 tablet 06/18/18 Pantoprazole Sodium [Protonix] 40 mg PO DAILY #30 tablet 06/18/18 Saxagliptin Hydrochloride [Onglyza] 5 mg PO DAILY tablet 06/18/18 Following Prescrptions Were Given to Patient: Isosorbide Mononitrate [Imdur] 30 mg PO DAILY #30 tablet Losartan Potassium [Cozaar] 50 mg PO DAILY #30 tablet Pantoprazole Sodium [Protonix] 40 mg PO DAILY #30 tablet Other Amb Orders: Phase II, Outpatient Cardiac Rehab Location: None Selected Primary Care Physician: Micheal Bruce III, MD [Primary Care Provider] - Please Follow Up With: Olu Sparks MD When: As scheduled Disposition: Home Minutes spent on discharge:: 45 Patient Condition:: Stable Medical Necessity - Tobacco Use Smoking Status: Former smoker Meaningful Use Info Meaningful Use Diagnoses (Choose all that apply): None applicable
== END 2018-06-18 12:30 | disposition home or self-care (01) ==
LOC: CLSP 09:59 → ICU 06-21 07:08
PROVIDERS: Nurse Practitioner Family; Family Provider Family Medicine; PCP Family Medicine; Referring Provider Internal Medicine Cardiovascular Disease; Visit Provider Internal Medicine Cardiovascular Disease
DX: I25.10 Atherosclerotic heart disease of native coronary artery without angina pectoris (principal); Q21.1 Atrial septal defect; E11.22 Type 2 diabetes mellitus with diabetic chronic kidney disease; I12.9 Hypertensive chronic kidney disease with stage 1 through stage 4 chronic kidney disease, or unspecified chronic kidney disease; N18.9 Chronic kidney disease, unspecified; E11.40 Type 2 diabetes mellitus with diabetic neuropathy, unspecified; I44.1 Atrioventricular block, second degree; E78.2 Mixed hyperlipidemia; K21.9 Gastro-esophageal reflux disease without esophagitis; R94.39 Abnormal result of other cardiovascular function study; Z79.02 Long term (current) use of antithrombotics/antiplatelets; Z79.82 Long term (current) use of aspirin; Z79.899 Other long term (current) drug therapy; Z86.73 Personal history of transient ischemic attack (TIA), and cerebral infarction without residual deficits; Z87.891 Personal history of nicotine dependence
CPT/HCPCS: 36415; 71046; 80048; 82962; 85014; 85018; 85027; 85610; 85730; 92928; 93005; 93458; 99152; 99153; J7030; J7040; C1725; C1769; C1874; C1887; C1894; C9600; J0583; Q9967

== ENCOUNTER → 2018-06-23 11:57 | Outpatient (CLI) | payer OTHER, SELFPAY ==
[2018-06-17 14:00] VITALS: BMI 23.6
[2018-06-17 15:46] VITALS: BMI 24.5
[2018-06-22 11:34] VITALS: BMI 24.0
--- NOTE | 2018-06-23 12:02 | PCM.CR.ITP ---
General Information - General Information Admitting Diagnosis: ABNORMAL STRESS TEST, PCI W/CORONARY STENT PLACEMENT - Education/Goals Individual Counseling: Initial Assessment: Abnormal Cholesterol Levels, Diabetes Cardiac Rehabilitation Goals: 1. Maintain the individual as the primary focus of care. 2. To improve the patient's quality of life. 3. Identification of cardiac risk factors and provide cardiac risk factor management. 4. Enhance the psychosocial status of the patient. 5. Reconditioning enough to allow the patient to resume customary activities. 6. Control symptoms of cardiac disease Scale for measuring improvement of personal goals: Enter appropriate number in Comments. 2 = Unchanged. 3 = Slightly Better. 4 = Moderate Improvement. 5 = Met my Goal Personal Goals: Initial Assessment: Improve energy level, Get back to work, or to resume activities faster, Improve muscle strength and endurance Exercise - Initial Assessment - Visit Date of Eval: 06/23/18 - Stages of Change Stages of Change:: Action - Stress Test Date: 05/31/18 HR (bpm):: 144 - 92% MAX PRED HR EKG: FIRST DEGREE AV BLOCK MOBITZ 1 MET LEVEL:: 11.7 Blood Pressure: 172/80 - Physician Prescribed Exercise Modalities: Treadmill, Rower, Airdyne Frequency (days/week): 3x/week for 12 weeks [36 sessions] Duration (Minutes):: 30-45 Intensity: 60-80% maximum heart rate reserve from GXT METs - Progression: 0.5-1.0 MET, RPE 11-14 WEEK: 5.5 Target Heart Rate:: 101-132 - Hypertension Do any of the following apply?: Yes Resting Blood Pressure:: 146/90 - Intervention Home Exercise/Activity Goal:: Moderate Exercise 30 min/day x 5 days/wk - Education Goals:: Warm-up, RPE ELISABETH Scale, S/S, Safe Exercise, Self-Monitoring - Exercise Program Goals Exercise Program Goals: Aerobic Activity >30 min Nutrition - Initial Assessment - Program Goals Nutrition Program Goals: LDL <70. Total Cholesterol <200. HDL >45. Triglycerides <150. HgbA1C <7%. BMI <25 - Visit Date of Assessment:: 06/23/18 - Stages of Change Stages of Change:: Action - Lipids Total Cholesterol (mg/dL) Goal = less than 200 mg/dL: 121 HDL Cholesterol (mg/dL) Goal = less than 45 mg/dL: 40 LDL Cholesterol (mg/dL) Goal = less than 70 mg/dL: 53 Triglycerides (mg/dL) Goal = less than 150 mg/dL: 142 - Diabetes Diabetes:: Yes Insulin: No Non-Insulin Dependent?: Yes Do you monitor your blood sugar at home?: Yes - Weight Management Height: 5 ft 11 in Weight:: 176 lb Body Fat %:: 24.5 - Intervention Referral to dietitian:: No Referral to Diabetic Clinic:: No Will attend diet classes:: Yes - Education Gave educational materials for:: Signs & symptoms of hypoglycemia, Signs & symptoms of hyperglycemia, Relate diabetes to coronary artery disease, Healthy eating Tobacco - Initial Assessment - Program Goals Tobacco Program Goals: Complete smoking cessation. Attend education classes. Improve Knowledge Test score - Stage of Change Stages of Change:: Action - Learning Barriers Learning Barriers: Ready to Learn - Family Support Do you have family support?: Yes - Tobacco Use Tobacco Use: Non-smoker Do you use smokeless tobacco?: No - Intervention Smoking Cessation Referral:: No Education Schedule Given:: Yes - Education Gave educational material for:: Coronary artery disease, Risk factors, Sexuality, Medical compliance, Cardiac A&P, Angina signs & symptoms Psychosocial - Initial Assess - Target Goals Target Goals: Assess presence or absence of depression. Using a valid screening tool, maximizes coping skills. Positive support system - Stages of Change Stages of Change:: Action - Psychosocial Test Tool Used:: HANDS Depression Questionnaire - Intervention PS - Interventions: Yes Attend Stress Management Classes, No Referral to Mental Health, No Referral to [facility] Case Management, No Referral to Physician, No Uses Stress Management Skills - Education Gave educational materials for:: Coping techniques, Signs & symptoms of depression, Stress management, Relaxation techniques - Patient/Program Goal Preventative Medication(s):: Aspirin, Clopidogrel - Assistive Devices Assistive Devices:: None Fall Risk Assessed:: Yes Patient Health Questionnaire Initial Assessment 1. Little interest or pleasure in doing things: Not at all 2. Feeling down, depressed, or hopeless: Not at all 3. Trouble falling or staying asleep, or sleeping too much: Not at all 4. Feeling tired or having little energy: Several days 5. Poor appetite or overeating: Not at all 6. Feeling bad about yourself -- or that you are a failure or have let yourself or your family down: Not at all 7. Trouble concentrating on things, such as reading the newspaper or watching television: Not at all 8. Moving or speaking so slowly that other people could have noticed. Or the opposite - being so fidgety or restless that you have been moving around a lot more than usual: Not at all 9. Thoughts that you would be better off , or of hurting yourself in some way: Not at all How difficult have these problems made it for you to do your work, take care of things at home, or get along with other people?: Not difficult at all Total Score: 1 YEN-Q SV Test - Statements CAD is a disease of the arteries in the heart: False Examples of risk factors for heart disease: True Angina is chest pain or discomfort: I Don't Know The benefits of resistance training include: True Eating more meat and dairy products: False Anti-platelet medications such as aspirin are important: I Don't Know The only effective way to manage stress: False An exercise warm-up slowly increases heart rate: True Prepared, processed foods usually have high sodium: True Depression is common after a heart attack: True The statin medications lower cholesterol: True To control blood pressure, lower the amount of sodium: True If someone gets chest discomfort during walking: False Transfats are partially hydrogenated vegetable oils: True Sleep apnea that is not treated increases the risk: True To control cholesterol, one should become a vegetarian: False Someone knows if he/she is exercising at the right level: True Diabetes cannot be prevented with exercise & health eating: True Stress is a large risk for heart attack: True A diet that can help lower blood pressure is rich in: True - Total Score Total Correct Responses: 16 Self-Efficacy Initial Assessment We would like to know how confident you are in doing certain activities. Please select your confidence level for:: Select your confidence level for the following using the scale 1-10 where 1 is not at all confident and 10 is totally confident. Your score is the average of all 6 responses. Fatigue: How confident are you that you can keep the fatigue caused by your disease from interfering with the things you want to do? Select Number: 10 Physical Discomfort or Pain: How confident are you that you can keep the physical discomfort or pain of your disease from interfering with the things you want to do? Select Number: 10 Emotional Distress: How confident are you that you can keep the emotional distress caused by your disease from interfering with the things you want to do? Select Number: 10 Other Symptoms or Health Problems: How confident are you that you can keep other symptoms or health problems from interfering with the things you want to do? Select Number: 10 Different Tasks and Activities: How confident are you that you can do the different tasks and activities needed to manage your health condition so as to reduce your need to see a doctor? Select Number: 10 Medication: How confident are you that you can do things other than just taking medication to reduce how much your illness affects your everyday life? Select Number: 10 Total Score:: 10 Nutrition Survey - Nutrition Survey Instructions Scoring Instructions: Scoring is as follows: Yes = 1 points. No = 0 point. Patient score that is >/=12 is considered to be at potential nutritional risk and could benefit from a referral to a registered dietitian. - Nutrition Survey Initial Have you lost >10 lbs over the past 2 months without trying?: No Are you following a special diet at home for diabetes, low fat, or low salt?: Yes Are you interested in meeting with a dietitian for help understanding your diet?: No Do you eat less than 3 meals a day?: No Do you eat fatty meats (horton, sausage, ribs, etc), fried foods, desserts, large amounts of salad dressings, margarine, butter, or cheese most days?: Yes Do you have food allergies? [Enter types in comment field]: No Do you eat in restaurants more than 3 times a week?: Yes Do you season food with salt, seasoning salt, or garlic salt?: No Do you used canned, boxed, frozen meals, or soups, seasoning packets?: No Total Score:: 3
--- NOTE | 2018-06-23 12:02 | PCM.CR.HP2 ---
CR - History & Physical - General Arrival date:: 06/23/18 Arrival time:: 12:03 Date of Referral:: 06/17/18 Date of CR Evaluation:: 06/23/18 Referring Physician: DR. KIERAN LUNDBERG Primary Diagnosis: PCI W/CORONARY STENT - History of Present Cardiac Event Onset Date: Enter Onset Date of cardiac illnesses in Comment field below PTCA or coronary stenting:: Yes - 06/17/2018 Type of Symptoms:: Patient h/o av first degree block w/Mobitz I, had scheduled nuclear stress test which was abnormal in nature. Timothy was then scheduled for a heart cath where they found an occluded coronary artery which was then stented. Interventions with present event:: Nuclear Stress, Heart Cath Were there any complications?: None - Medications Home Medications: Ambulatory Orders Medication Instructions Recorded Meloxicam 15 mg PO DAILY 06/17/18 Aspirin [Aspirin, Baby] 81 mg PO DAILY@0800 tab.chew 06/18/18 Pantoprazole Sodium [Protonix] 40 mg PO DAILY #30 tab 06/18/18 Saxagliptin Hydrochloride [Onglyza] 5 mg PO DAILY tab 06/18/18 clopidogrel 75 mg tablet 75 mg PO DAILY #90 tab 06/22/18 isosorbide mononitrate ER 30 mg 30 mg PO DAILY #90 tab 06/22/18 tablet,extended release 24 hr losartan 50 mg tablet 50 mg PO DAILY #90 tab 06/22/18 - Allergies Allergies/Adverse Reactions: Allergies etodolac [Etodolac] Allergy (Verified 06/08/18 14:10) Hives metformin Adverse Reaction (Verified 06/08/18 14:10) Nausea - Sleep Disorder Evaluation Hx of Sleep Apnea: No Do you snore loudly (louder than talking or can be heard through closed doors)?: No Do you often feel tired/ fatigued/ sleepy during daytime?: No Has anyone observed you stop breathing during sleep?: No History of Hypertension (for STOP score): Yes STOP Results: Negative Advanced Directives - Advanced Directives Power of Works Manager: Yes Living Will: Yes Advance Directives Information Provided: No Advance Directives on File: Yes DNR Order?:: No - MOLST See MOLST form: No Past Medical History - Past Medical Illness Medical History: Past Medical History (Last Updated 06/23/18 @ 12:53 by Enrique Ramos, SCIENCE CONSULTANT, DIRECTOR CORPORATE COMMUNICATIONS, BS) Atherosclerotic heart disease of [place] coronary artery without angina pectoris (Chronic) I25.10 Successful PTCA/LUCIO Mid LAD with a 2.5x[address]. 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 Calhoun @ [facility] 06/17/18 History of foot surgery Z98.890 Surgical History: no surgical history - Family History Summary Family History: Family History (Last Reviewed 04/20/18 @ 13:12 by Gemma Gramajo) Mother CHF (congestive heart failure) CAD (coronary artery disease) Brother Hypertension Diabetes Myocardial infarction Social History - Smoking History Smoking Status: Former smoker Hx Tobacco Use: Yes Hx Smoking Exposure: No - Alcohol Use Alcohol Usage: Yes - RARE - Substance Abuse Hx Substance Use: No - Hobbies, Recreation, Social Activities Hobbies: Hiking, Walking, Exercise Recreational Activities: I am able to engage in all my recreational activities Social Environment - Status Marital Status: - Current Living Arrangements Living Environment:: Spouse - Children How many children do you have?: 3 Do any of your children live nearby?: Yes - Safety Do you feel safe in your surroundings?: Yes - Assistance Do you need any assistance at home?: none Review of Systems - Review of Systems Hints: Right click = Denies (Slash). Left click = Reports ([place]) Review of Present Symptoms: Reports: Dizziness/Lightheadedness - small amount of that, may be due to BP medications and are monitoring if dose may be to strong., Heart Arrhythmia/Irregularities - Fist degree AV Block with Mobitz I block., Appetite - Normal - stronger appetite since had stent., Appetite - Special Diet - Diabetic Diet, had formal education for the DM Type II., Sleep - Normal. Denies: Shortness of Breath at Rest, Shortness of Breath with Exertion, Operative Discomfort, Angina, Fatigue, Sexual Changes - Pain Is Patient Pain Free?: Yes Pain Location: back - chronic lower back pain; may be degenerative disc or inflammation. Worked in [employer] for years. Pain Level: 05/01 - lower back Risk Factor Assessment - Chief Complaint Chief Complaint: Patient presents to CR today following recent hospitalization and PCI intervention. - Vital Signs Temperature: 98.7 F Respiratory Rate: 12 Pulse Ox: 95 Blood Pressure: 132/84 Nailbeds:: normal in color - Pulse Pulse Rate: 48 Pulse Rhythm: Regular - Hypertension How long have you been treated?: Used prior and BP became to low taken off; since PCI has been back on meds On medication(s)?: yes Blood Pressure Sitting - Right Arm: 132/84 - Blood Cholesterol/Lipids Total Cholesterol (mg/dL) Goal = less than 200 mg/dL: 121 HDL Cholesterol (mg/dL) Goal = less than 40 mg/dL: 40 LDL Cholesterol (mg/dL) Goal = less than 70 mg/dL: 121 Triglycerides (mg/dL) Goal = less than 150 mg/dL: 142 - Diabetes Diabetic History: Type II - Obesity Height: 5 ft 11 in Weight:: 176 lb Weight in Pounds: 176.0 lbs Weight Source: Stated by Patient Body Mass Index (BMI): 24.5 Nutritional Referral for Obesity: No - Physical Inactivity Physical Inactivity: Reg Exercise 30 min/day, Physically demanding job, Recreational activity - Risk Stratification Risk Guidelines: Lowest Risk: Risk Factor for Smoking, Risk Factor for Dyslipidemia, Risk Factor for Obesity, Risk Factor for Sedentary Lifestyle, Risk Factor for Depression, Moderate Risk: Risk Factor for Diabetes - last HbA1C 6.1 goal is keep it below 7 per clinician oncology, Risk Factor for Hypertension - For Smoking Smoking Risk Guidelines: Smoking Low Risk: None or quit greater than 6 months ago. Smoking Moderate Risk: Smoker or quit 6 months or less ago. Smoking High Risk: Smoker - For Dyslipidemia Dyslipidemia Risk Guidelines: Low Risk: Moderate Risk: High Risk: 15-25% fat 25.1-29% fat >/= 30% fat. <7% sat fat 7-9% sat fat >9% sat fat. <150 mg chol 150-299 mg chol >/= 300 mg chol. LDL <100 LDL 100-129 LDL >/= 130. Chol/HDL ratio <5.0 Chol/HDL ratio 5.0-6.0 Chol/HDL ratio >6.0. Triglycerides <100 Triglycerides 100-149 Triglycerides >/= 150 - For Diabetes Mellitus Diabetes Risk Guidelines: Diabetes Low Risk: HgA1c <6.5% and/or FBG <120. Diabetes Moderate Risk: HgA1c 6.6-7.9% and/or FBG 120-180. Diabetes High Risk: HgA1c >/= 8% and/or FBG >180 - For Obesity/Overweight Obesity/Overweight Risk Guidelines: Obesity Low Risk: BMI <25.0. Obesity Moderate Risk: BMI 25-29.9. Obesity High Risk: BMI >/= 30.0 - For Hypertension Hypertension Risk Guidelines: Hypertension Low Risk: Systolic <120 and Diastolic <80. Hypertension Moderate Risk: Systolic 120-139 and Diastolic 80-89. Hypertension High Risk: Systolic >/= 140 and Diastolic >/= 90 - For Sedentary Lifestyle Sedentary Lifestyle Risk Guidelines: Sedentary Lifestyle Low Risk: >/= 1,500 kcal/week. Sedentary Lifestyle Moderate Risk: 700-1,499 kcal/week. Sedentary Lifestyle High Risk: < 700 kcal/week - For Depression Depression Risk Guidelines: Depression Low Risk: Not clinically depressed. Depression Moderate Risk: Mildly depressed. Depression High Risk: Clinically depressed - Family History Family History: Family History (Last Reviewed 04/20/18 @ 13:12 by Gemma Gramajo) Mother CHF (congestive heart failure) CAD (coronary artery disease) Brother Hypertension Diabetes Myocardial infarction Motivation - Motivation to Participate On a scale of 1 to 10, how prepared are you to commit to attending program?: 6 - since really don't know what to expect. 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 What do you see as the benefits of succesfully completing the program? In other words, what do you hope to get out of participating in the program?: gain upper body strength back up to normal. Are there issues you are dealing with that will interfere with completing the program?: none Do you have a spouse or signficant other, family or friends who will help support you to complete the program?: yes
--- NOTE | 2018-06-23 12:21 | CR.HP_ITS ---
CR - History & Physical - General Arrival date:: 06/23/18 Arrival time:: 12:03 Date of Referral:: 06/17/18 Date of CR Evaluation:: 06/23/18 Referring Physician: DR. KIERAN LUNDBERG Primary Diagnosis: PCI W/CORONARY STENT - History of Present Cardiac Event Onset Date: Enter Onset Date of cardiac illnesses in Comment field below PTCA or coronary stenting:: Yes - 06/17/2018 Type of Symptoms:: Patient h/o av first degree block w/Mobitz I, had scheduled nuclear stress test which was abnormal in nature. Timothy was then scheduled for a heart cath where they found an occluded coronary artery which was then stented. Interventions with present event:: Nuclear Stress, Heart Cath Were there any complications?: None - Medications Home Medications: Ambulatory Orders Medication Instructions Recorded Meloxicam 15 mg PO DAILY 06/17/18 Aspirin [Aspirin, Baby] 81 mg PO DAILY@0800 tab.chew 06/18/18 Pantoprazole Sodium [Protonix] 40 mg PO DAILY #30 tab 06/18/18 Saxagliptin Hydrochloride [Onglyza] 5 mg PO DAILY tab 06/18/18 clopidogrel 75 mg tablet 75 mg PO DAILY #90 tab 06/22/18 isosorbide mononitrate ER 30 mg 30 mg PO DAILY #90 tab 06/22/18 tablet,extended release 24 hr losartan 50 mg tablet 50 mg PO DAILY #90 tab 06/22/18 - Allergies Allergies/Adverse Reactions: Allergies etodolac [Etodolac] Allergy (Verified 06/08/18 14:10) Hives metformin Adverse Reaction (Verified 06/08/18 14:10) Nausea - Sleep Disorder Evaluation Hx of Sleep Apnea: No Do you snore loudly (louder than talking or can be heard through closed doors)?: No Do you often feel tired/ fatigued/ sleepy during daytime?: No Has anyone observed you stop breathing during sleep?: No History of Hypertension (for STOP score): Yes STOP Results: Negative Advanced Directives - Advanced Directives Power of Equipment Records Supervisor: Yes Living Will: Yes Advance Directives Information Provided: No Advance Directives on File: Yes DNR Order?:: No - MOLST See MOLST form: No Past Medical History - Past Medical Illness Medical History: Past Medical History (Last Updated 06/23/18 @ 12:53 by Enrique Ramos, COUNTER SALES REPRESENTATIVE, LOGISTICS PROGRAM MANAGER, BS) Atherosclerotic heart disease of [place] coronary artery without angina pectoris (Chronic) I25.10 Successful PTCA/LUCIO Mid LAD with a 2.5x[address]. 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 Calhoun @ [facility] 06/17/18 History of foot surgery Z98.890 Surgical History: no surgical history - Family History Summary Family History: Family History (Last Reviewed 04/20/18 @ 13:12 by Gemma Gramajo) Mother CHF (congestive heart failure) CAD (coronary artery disease) Brother Hypertension Diabetes Myocardial infarction Social History - Smoking History Smoking Status: Former smoker Hx Tobacco Use: Yes Hx Smoking Exposure: No - Alcohol Use Alcohol Usage: Yes - RARE - Substance Abuse Hx Substance Use: No - Hobbies, Recreation, Social Activities Hobbies: Hiking, Walking, Exercise Recreational Activities: I am able to engage in all my recreational activities Social Environment - Status Marital Status: - Current Living Arrangements Living Environment:: Spouse - Children How many children do you have?: 3 Do any of your children live nearby?: Yes - Safety Do you feel safe in your surroundings?: Yes - Assistance Do you need any assistance at home?: none Review of Systems - Review of Systems Hints: Right click = Denies (Slash). Left click = Reports ([place]) Review of Present Symptoms: Reports: Dizziness/Lightheadedness - small amount of that, may be due to BP medications and are monitoring if dose may be to strong., Heart Arrhythmia/Irregularities - Fist degree AV Block with Mobitz I block., Appetite - Normal - stronger appetite since had stent., Appetite - Special Diet - Diabetic Diet, had formal education for the DM Type II., Sleep - Normal. Denies: Shortness of Breath at Rest, Shortness of Breath with Exertion, Operative Discomfort, Angina, Fatigue, Sexual Changes - Pain Is Patient Pain Free?: Yes Pain Location: back - chronic lower back pain; may be degenerative disc or inflammation. Worked in [employer] for years. Pain Level: 05/01 - lower back Risk Factor Assessment - Chief Complaint Chief Complaint: Patient presents to CR today following recent hospitalization and PCI intervention. - Vital Signs Temperature: 98.7 F Respiratory Rate: 12 Pulse Ox: 95 Blood Pressure: 132/84 Nailbeds:: normal in color - Pulse Pulse Rate: 48 Pulse Rhythm: Regular - Hypertension How long have you been treated?: Used prior and BP became to low taken off; since PCI has been back on meds On medication(s)?: yes Blood Pressure Sitting - Right Arm: 132/84 - Blood Cholesterol/Lipids Total Cholesterol (mg/dL) Goal = less than 200 mg/dL: 121 HDL Cholesterol (mg/dL) Goal = less than 40 mg/dL: 40 LDL Cholesterol (mg/dL) Goal = less than 70 mg/dL: 121 Triglycerides (mg/dL) Goal = less than 150 mg/dL: 142 - Diabetes Diabetic History: Type II - Obesity Height: 5 ft 11 in Weight:: 176 lb Weight in Pounds: 176.0 lbs Weight Source: Stated by Patient Body Mass Index (BMI): 24.5 Nutritional Referral for Obesity: No - Physical Inactivity Physical Inactivity: Reg Exercise 30 min/day, Physically demanding job, Recreational activity - Risk Stratification Risk Guidelines: Lowest Risk: Risk Factor for Smoking, Risk Factor for Dyslipidemia, Risk Factor for Obesity, Risk Factor for Sedentary Lifestyle, Risk Factor for Depression, Moderate Risk: Risk Factor for Diabetes - last HbA1C 6.1 goal is 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 Smoking Moderate Risk: Smoker or quit 6 months or less ago. Smoking High Risk: Smoker - For Dyslipidemia Dyslipidemia Risk Guidelines: Low Risk: Moderate Risk: High Risk: 15-25% fat 25.1-29% fat >/= 30% fat. <7% sat fat 7-9% sat fat >9% sat fat. <150 mg chol 150-299 mg chol >/= 300 mg chol. LDL <100 LDL 100-129 LDL >/= 130. Chol/HDL ratio <5.0 Chol/HDL ratio 5.0-6.0 Chol/HDL ratio >6.0. Triglycerides <100 Triglycerides 100- 149 Triglycerides >/= 150 - For Diabetes Mellitus Diabetes Risk Guidelines: Diabetes Low Risk: HgA1c <6.5% and/or FBG <120. Diabetes Moderate Risk: HgA1c 6.6-7.9% and/or FBG 120-180. D iabetes High Risk: HgA1c >/= 8% and/or FBG >180 - For Obesity/Overweight Obesity/Overweight Risk Guidelines: Obesity Low Risk: BMI <25.0. Obesity Moderate Risk: BMI 25-29.9. Obesity High Risk: BMI >/= 30.0 - For Hypertension Hypertension Risk Guidelines: Hypertension Low Risk: Systolic <120 and Diastolic <80. Hypertension Moderate Risk: Systolic 120-139 and Diastolic 80-89. Hypertension High Risk: Systolic >/= 140 and Diastolic >/= 90 - For Sedentary Lifestyle Sedentary Lifestyle Risk Guidelines: Sedentary Lifestyle Low Risk: >/= 1,500 kcal/week. Sedentary Lifestyle Moderate Risk: 700-1,499 kcal/week. Sede ntary Lifestyle High Risk: < 700 kcal/week - For Depression Depression Risk Guidelines: Depression Low Risk: Not clinically depressed. Depression Moderate Risk: Mildly depressed. Depression High Risk: Clinically depressed - Family History Family History: Family History (Last Reviewed 04/20/18 @ 13:12 by Gemma Gramajo) Mother CHF (congestive heart failure) CAD (coronary artery disease) Brother Hypertension Diabetes Myocardial infarction Motivation - Motivation to Participate On a scale of 1 to 10, how prepared are you to commit to attending program?: 6 - since really don't know what to expect. 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 What do you see as the benefits of succesfully completing the program? In other words, what do you hope to get out of participating in the program?: gain upper body strength back up to normal. Are there issues you are dealing with that will interfere with completing the program?: none Do you have a spouse or signficant other, family or friends who will help support you to complete the program?: yes
[2018-06-23 12:53] VITALS: BP 132/84; PULSE 48; RESP 12; TEMP 37.1; O2SAT 95; BMI 24.5
[2018-06-23 12:55] VITALS: BP 146/90; BP 172/80
== END ==
PROVIDERS: Family Provider Family Medicine; PCP Family Medicine; Referring Provider Internal Medicine Cardiovascular Disease; Visit Provider Internal Medicine Cardiovascular Disease
DX: I25.10 Atherosclerotic heart disease of native coronary artery without angina pectoris (principal); Z95.5 Presence of coronary angioplasty implant and graft

== ENCOUNTER 2018-07-08 11:30 | Outpatient (RCR) | payer OTHER, SELFPAY ==
[2018-06-17 15:46] VITALS: BMI 24.5
[2018-06-23 12:53] VITALS: BMI 24.5
== END 2018-07-13 11:15 | disposition home or self-care (01) ==
LOC: CR 11:30
PROVIDERS: Family Provider Family Medicine; PCP Family Medicine; Referring Provider Internal Medicine Cardiovascular Disease; Visit Provider Internal Medicine Cardiovascular Disease
DX: I25.10 Atherosclerotic heart disease of native coronary artery without angina pectoris (principal); Z95.5 Presence of coronary angioplasty implant and graft
CPT/HCPCS: 93798

== ENCOUNTER → 2018-11-02 06:28 | Outpatient (CLI) | payer MEDICARE, OTHER, SELFPAY ==
[2018-06-17 15:46] VITALS: BMI 24.5
[2018-10-24 13:28] VITALS: BMI 24.5
--- NOTE | 2018-11-02 10:26 | STRESSREP_ITS ---
Stress Test Report Date: 11-02-18 Procedure: Exercise tolerance test/imaging study Indications: Chest pain; CAD; conduction system disease Consent: Per the patient Procedure: The patient exercised on a Jorge protocol for 10 minutes and 30 seconds completing Stage III and 1 minute 30 seconds of Stage IV achieving a peak heart rate of 144 bpm (92 % predicted maximal heart rate) with a peak blood pressure 178/60 mmHg and a peak MET capacity of 12 METs. The baseline ECG demonstrated sinus bradycardia with intermittent episodes of second-degree AV block Mobitz 1 Wenckebach. The peak exercise ECG demonstrated somatic/motion artifact with beat to beat ST segment variability with approximately 1 mm of horizontal/upsloping ST segment depression in leads III, aVF, and V4 through V6 with resolution towards baseline beginning less than 1 minute in recovery. There was a rare PVC during recovery and evidence of second-degree AV block Mobitz 1 Wenckebach during recovery. The functional capacity was considered good. There was mild heartburn during recovery. The examination was discontinued secondary to fatigue. Impression: 1. Technically adequate (percent predicted maximal heart rate greater than 85%) exercise tolerance test 2. Peak exercise ECG demonstrated somatic/motion artifact with beat to beat ST segment variability with approximately 1 mm of horizontal/upsloping ST segment depression in leads III, aVF, and V4 through V6 with resolution towards baseline beginning less than 1 minute in recovery 3. There was a rare PVC during recovery and evidence of second-degree AV block Mobitz 1 winky block during recovery 4. Nuclear images pending Myocardial perfusion imaging study: Technique: The patient was injected with 11.6 mCi of technetium 99m Cardiolite and subsequently rest SPECT Cardiolite nuclear imaging was obtained in the horizontal long, vertical long, and short axis views. The patient exercised on a Jorge protocol for 10 minutes and 30 seconds completing Stage III and 1 minute 30 seconds of Stage IV achieving a peak heart rate of 144 bpm (92 % predicted maximal heart rate) with a peak blood pressure 178/60 mmHg and a peak MET capacity of 12 METs. The patient was injected with 33.5 mCi of technetium 99m Cardiolite and subsequently stress SPECT Cardiolite nuclear imaging was obtained in the horizontal long, vertical long, and short axis views. A gated Cardiolite study at peak stress was obtained. Interpretation: Rest and stress SPECT Cardiolite nuclear imaging status post realignment, normalization, and attenuation correction, demonstrates the appearance of relative uniform tracer uptake and myocardial perfusion appearing within normal limits. There is end systolic thickening and brightening. The gated Cardiolite study demonstrates myocardial thickening and inward wall motion. The reported LVEF is 71 %. Impression: 1. Rest and stress SPECT Cardiolite nuclear imaging demonstrate relative u niform tracer uptake and myocardial perfusion appearing within normal limits. 2. The gated Cardiolite study reports an LVEF of 71 %. This note was generated with [employer] software. It may contain incorrect words, spelling, and punctuation that were not noted in checking the note before signing.
== END ==
PROVIDERS: Family Provider Family Medicine; PCP Family Medicine; Referring Provider Nurse Practitioner Family; Visit Provider Nurse Practitioner Family
DX: I25.10 Atherosclerotic heart disease of native coronary artery without angina pectoris (principal); Z95.5 Presence of coronary angioplasty implant and graft
CPT/HCPCS: 78452; 93017; A9500; A4216

== ENCOUNTER → 2019-05-17 10:12 | Outpatient (CLI) | payer MEDICARE, OTHER, SELFPAY ==
[2018-06-17 15:46] VITALS: BMI 24.5
[2018-10-24 13:28] VITALS: BMI 24.5
[2019-05-17 11:03] LABS: AST(SGOT) 15 U/L (15-37); Alanine Aminotransfer ALT/SGPT 27 U/L (16-61); Anion Gap 2 (5-15); BUN 27 mg/dL (7-18); BUN/Creat Ratio 17.9 RATIO (10-20); Calcium,Total 9.1 mg/dL (8.5-10.1); Chloride 111 mmol/L (98-107); Cholesterol 184 mg/dL (200); Creatinine, Serum 1.51 mg/dL (0.70-1.30); EST Glomerular Filtration Rate 50 mL/min (>60); Est Glom Filt Rate - Afr Amer 60 mL/min (>60); Glucose 147 mg/dL (74-106); High Density Lipoprotein 33 mg/dL; Potassium 4.9 mmol/L (3.5-5.1); Sodium Level 140 mmol/L (136-145); Triglycerides 123 mg/dL; Very Low Density Lipoprotein 25 mg/dL (5-40)
[2019-05-17 11:29] LABS: Hemoglobin A1c 7.1 % (4.2-6.3)
[2019-05-17 11:58] LABS: Microalbumin,Random Urine 13.7 mg/L (NO RANGE EST.); Microalbumin:Creatinine Ratio 12.8 mg/g CRE (<30 mg/g CRE)
== END ==
PROVIDERS: PCP Family Medicine; Referring Provider Internal Medicine Endocrinology, Diabetes & Metabolism; Visit Provider Internal Medicine Endocrinology, Diabetes & Metabolism
DX: E11.21 Type 2 diabetes mellitus with diabetic nephropathy (principal); E78.2 Mixed hyperlipidemia
CPT/HCPCS: 36415; 80048; 80061; 82043; 82570; 83036; 84450; 84460

== ENCOUNTER → 2019-11-23 10:42 | Outpatient (CLI) | payer MEDICARE, OTHER, SELFPAY ==
[2018-06-17 15:46] VITALS: BMI 24.5
[2019-06-02 15:32] VITALS: BMI 25.0
[2019-11-23 12:08] LABS: AST(SGOT) 21 U/L (15-37); Alanine Aminotransfer ALT/SGPT 25 U/L (16-61); Anion Gap 2 (5-15); BUN 25 mg/dL (7-18); BUN/Creat Ratio 16.6 RATIO (10-20); Calcium,Total 8.4 mg/dL (8.5-10.1); Chloride 110 mmol/L (98-107); Creatinine, Serum 1.51 mg/dL (0.70-1.30); EST Glomerular Filtration Rate 49 mL/min (>60); Est Glom Filt Rate - Afr Amer 60 mL/min (>60); Glucose 112 mg/dL (74-106); Potassium 4.7 mmol/L (3.5-5.1); Sodium Level 139 mmol/L (136-145)
[2019-11-23 12:15] LABS: Hemoglobin A1c 6.7 % (3.8-5.6)
== END ==
PROVIDERS: PCP Family Medicine; Referring Provider Internal Medicine Endocrinology, Diabetes & Metabolism; Visit Provider Internal Medicine Endocrinology, Diabetes & Metabolism
DX: E11.21 Type 2 diabetes mellitus with diabetic nephropathy (principal)
CPT/HCPCS: 36415; 80048; 83036; 84450; 84460

== ENCOUNTER → 2020-05-23 10:16 | Outpatient (CLI) | payer MEDICARE, OTHER, SELFPAY ==
[2018-06-17 15:46] VITALS: BMI 24.5
[2019-12-05 09:56] VITALS: BMI 23.6
[2020-05-23 10:56] LABS: Hemoglobin A1c 6.7 % (3.8-5.6)
[2020-05-23 11:08] LABS: ALB/GLOB Ratio 1.1 RATIO (0.9-2.4); AST(SGOT) 18 U/L (15-37); Alanine Aminotransfer ALT/SGPT 30 U/L (16-61); Albumin, Serum 4.1 g/dL (3.2-5.0); Alkaline Phosphatase 87 U/L (45-117); Anion Gap 5 (5-15); BUN 21 mg/dL (7-18); BUN/Creat Ratio 14.4 RATIO (10-20); Calcium,Total 9.3 mg/dL (8.5-10.1); Chloride 107 mmol/L (98-107); Cholesterol 190 mg/dL (200); Creatinine, Serum 1.46 mg/dL (0.70-1.30); EST Glomerular Filtration Rate 51 mL/min (>60); Est Glom Filt Rate - Afr Amer 62 mL/min (>60); Globulin 3.8 g/dL (2.2-4.2); Glucose 184 mg/dL (74-106); High Density Lipoprotein 39 mg/dL; Protein, Total 7.9 g/dL (6.4-8.2); Sodium Level 138 mmol/L (136-145); Triglycerides 128 mg/dL; Very Low Density Lipoprotein 26 mg/dL (5-40)
[2020-05-23 11:41] LABS: Microalbumin,Random Urine 20.3 mg/L (NO RANGE EST.); Microalbumin:Creatinine Ratio 19.7 mg/g CRE (<30 mg/g CRE)
== END ==
PROVIDERS: PCP Family Medicine; Referring Provider Family Medicine; Visit Provider Family Medicine
DX: E11.21 Type 2 diabetes mellitus with diabetic nephropathy (principal); E78.2 Mixed hyperlipidemia; I10 Essential (primary) hypertension
CPT/HCPCS: 36415; 80053; 80061; 82043; 82570; 83036

== ENCOUNTER → 2020-11-27 09:41 | Outpatient (CLI) | payer MEDICARE, OTHER, SELFPAY ==
[2018-06-17 15:46] VITALS: BMI 24.5
[2020-11-27 10:44] LABS: AST(SGOT) 20 U/L (15-37); Alanine Aminotransfer ALT/SGPT 30 U/L (16-61); Anion Gap 4 (5-15); BUN 24 mg/dL (7-18); BUN/Creat Ratio 15.4 RATIO (10-20); Calcium,Total 8.5 mg/dL (8.5-10.1); Chloride 110 mmol/L (98-107); Creatinine, Serum 1.56 mg/dL (0.70-1.30); EST Glomerular Filtration Rate 47 mL/min (>60); Est Glom Filt Rate - Afr Amer 57 mL/min (>60); Glucose 194 mg/dL (74-106); Potassium 4.8 mmol/L (3.5-5.1); Sodium Level 139 mmol/L (136-145)
[2020-11-27 10:51] LABS: Hemoglobin A1c 6.9 % (3.8-5.6)
== END ==
PROVIDERS: PCP Family Medicine; Referring Provider Internal Medicine Endocrinology, Diabetes & Metabolism; Visit Provider Internal Medicine Endocrinology, Diabetes & Metabolism
DX: E11.21 Type 2 diabetes mellitus with diabetic nephropathy (principal)
CPT/HCPCS: 36415; 80048; 83036; 84450; 84460

== ENCOUNTER → 2021-02-18 14:22 | Outpatient (CLI) | payer MEDICARE, OTHER, SELFPAY ==
[2018-06-17 15:46] VITALS: BMI 24.5
--- NOTE | 2021-02-18 14:24 | US_ITS ---
STUDY: THYROID ULTRASOUND REASON FOR EXAM: Male, 65 years old. Thyroid nodule. TECHNIQUE: Ultrasound evaluation of the thyroid was performed with real-time and static marshall-scale imaging. COMPARISON: None. FINDINGS: RIGHT LOBE: The right lobe of the thyroid gland measures 3.5 cm x 1.8 cm x 1.8 cm. There is a homogeneous echotexture. There are no demonstrated solid, cystic or complex lesions. LEFT LOBE: The left lobe of the thyroid gland measures 3.6 cm x 1.5 cm x 1.5 cm. There is a homogeneous echotexture. There are no demonstrated solid, cystic or complex lesions. ISTHMUS: The isthmus measures 3.0 mm. The regional lymph nodes are normal. US/Thyroid IMPRESSION: Normal ultrasound examination of the thyroid. Electronically Signed: Rancho Lopez MD at 15:24 EST , Service support ,
== END ==
PROVIDERS: PCP Family Medicine; Referring Provider Family Medicine; Visit Provider Family Medicine
DX: E04.1 Nontoxic single thyroid nodule (principal)
CPT/HCPCS: 76536

== ENCOUNTER 2021-04-09 07:35 | Outpatient (CLI) | payer MEDICARE, OTHER, SELFPAY ==
[2018-06-17 15:46] VITALS: BMI 24.5
== END 2021-04-09 23:59 | disposition short-term general hospital (02) ==
LOC: LABSPEC 04-10 07:39
PROVIDERS: PCP Family Medicine; Referring Provider Nurse Practitioner Family; Visit Provider Nurse Practitioner Family
DX: U07.1 COVID-19 (principal)
CPT/HCPCS: 87635; U0003; U0005

== ENCOUNTER 2021-05-21 08:29 | Outpatient (CLI) | payer MEDICARE, OTHER, SELFPAY ==
[2018-06-17 15:46] VITALS: BMI 24.5
[2021-05-21 10:54] LABS: AST(SGOT) 17 U/L (15-37); Alanine Aminotransfer ALT/SGPT 25 U/L (16-61); Anion Gap 7 (5-15); BUN 32 mg/dL (7-18); BUN/Creat Ratio 19.8 RATIO (10-20); Calcium,Total 9.3 mg/dL (8.5-10.1); Chloride 107 mmol/L (98-107); Creatinine, Serum 1.62 mg/dL (0.70-1.30); EST Glomerular Filtration Rate 45 mL/min (>60); Est Glom Filt Rate - Afr Amer 55 mL/min (>60); Glucose 212 mg/dL (74-106); Potassium 4.5 mmol/L (3.5-5.1); Sodium Level 138 mmol/L (136-145)
[2021-05-21 11:05] LABS: Hemoglobin A1c 6.9 % (3.8-5.6)
== END 2021-05-21 23:59 | disposition home or self-care (01) ==
LOC: MFPLAB 08:33
PROVIDERS: PCP Family Medicine; Referring Provider Family Medicine; Visit Provider Internal Medicine Endocrinology, Diabetes & Metabolism
DX: E11.21 Type 2 diabetes mellitus with diabetic nephropathy (principal)
CPT/HCPCS: 36415; 80048; 83036; 84450; 84460

== ENCOUNTER → 2021-08-11 | Outpatient (CLI) | payer MEDICARE, OTHER, SELFPAY ==
[2018-06-17 15:46] VITALS: BMI 24.5
[2021-08-11 15:21] LABS: Absolute Lymphocyte Count 1.41 X10^3/uL (0.83-4.51); Absolute Neutrophil Count 3.7 X10^3/uL (2.0-7.7); Basophil# 0.05 X10^3/uL; Basophil% 0.9 % (0-1); Eosinophil# 0.09 X10^3/uL; Eosinophils% 1.6 % (0-5); Hematocrit 39.4 % (40-54); Hemoglobin 13.2 g/dL (13.0-16.5); Lymphocyte # 1.41 X10^3/ul (0.83-4.51); Lymphocyte % 24.6 % (19-41); Mean Corp Hgb Conc 33.5 g/dL (32-36); Mean Corpuscular Hgb 29.9 pg (27.0-32.0); Mean Corpuscular Volume 89.3 fL (80-94); Mean Platelet Vol. 9.9 fl (6.2-12.0); Monocyte# 0.46 X10^3/uL; NRBC Flagged by Analyzer 0 % (0-5); Neutrophil # 3.72 X10^3/uL (2.7-7.7); Neutrophil % 64.7 % (47-70); Platelet Count 223 K/mm3 (150-450); RBC Distribution Width CV 12.3 % (11.6-14.6); RBC Distribution Width SD 40.2 fl (35.1-43.9); Red Blood Count 4.41 M/mm3 (4.6-6.2); White Blood Count 5.7 K/mm3 (4.4-11.0)
[2021-08-11 15:37] LABS: Anion Gap 3 (5-15); BUN 24 mg/dL (7-18); BUN/Creat Ratio 15.4 RATIO (10-20); Calcium,Total 8.8 mg/dL (8.5-10.1); Chloride 108 mmol/L (98-107); Creatinine, Serum 1.56 mg/dL (0.70-1.30); EST Glomerular Filtration Rate 47 mL/min (>60); Est Glom Filt Rate - Afr Amer 57 mL/min (>60); Glucose 137 mg/dL (74-106); Potassium 5.1 mmol/L (3.5-5.1); Sodium Level 136 mmol/L (136-145)
== END | disposition home or self-care (01) ==
LOC: MFPLAB 12:25
PROVIDERS: PCP Family Medicine; Visit Provider Family Medicine
DX: R42 Dizziness and giddiness (principal)
CPT/HCPCS: 36415; 80048; 85025

== ENCOUNTER → 2021-11-28 | Outpatient (CLI) | payer MEDICARE, OTHER, SELFPAY ==
[2018-06-17 15:46] VITALS: BMI 24.5
[2021-11-28 10:05] LABS: Absolute Lymphocyte Count 1.39 X10^3/uL (0.83-4.51); Basophil# 0.06 X10^3/uL; Eosinophil# 0.17 X10^3/uL; Eosinophils% 2.8 % (0-5); Hematocrit 39.8 % (40-54); Hemoglobin 13.4 g/dL (13.0-16.5); Lymphocyte # 1.39 X10^3/ul (0.83-4.51); Lymphocyte % 22.6 % (19-41); Mean Corp Hgb Conc 33.7 g/dL (32-36); Mean Corpuscular Hgb 30.5 pg (27.0-32.0); Mean Corpuscular Volume 90.5 fL (80-94); Mean Platelet Vol. 10.3 fl (6.2-12.0); Monocyte# 0.52 X10^3/uL; Monocyte% 8.5 % (0-10); NRBC Flagged by Analyzer 0 % (0-5); Neutrophil # 3.98 X10^3/uL (2.7-7.7); Neutrophil % 64.6 % (47-70); Platelet Count 204 K/mm3 (150-450); RBC Distribution Width CV 12.3 % (11.6-14.6); RBC Distribution Width SD 40.9 fl (35.1-43.9); White Blood Count 6.2 K/mm3 (4.4-11.0)
[2021-11-28 10:24] LABS: Vitamin D,25 Hydroxy 26.4 ng/mL
[2021-11-28 10:30] LABS: Microalbumin,Random Urine 10.9 mg/L (NO RANGE EST.)
[2021-11-28 10:42] LABS: AST(SGOT) 18 U/L (15-37); Alanine Aminotransfer ALT/SGPT 29 U/L (16-61); Anion Gap 7 (5-15); BUN 24 mg/dL (7-18); BUN/Creat Ratio 16.8 RATIO (10-20); Calcium,Total 8.7 mg/dL (8.5-10.1); Chloride 108 mmol/L (98-107); Cholesterol 163 mg/dL (200); Creatinine, Serum 1.43 mg/dL (0.70-1.30); EST Glomerular Filtration Rate 52 mL/min (>60); Est Glom Filt Rate - Afr Amer 63 mL/min (>60); Glucose 179 mg/dL (74-106); High Density Lipoprotein 32 mg/dL; Potassium 4.1 mmol/L (3.5-5.1); Sodium Level 140 mmol/L (136-145); Triglycerides 173 mg/dL; Very Low Density Lipoprotein 35 mg/dL (5-40)
[2021-11-28 10:42] LABS: PTHIN 48.1 pg/mL (18.4-80.1)
[2021-11-28 11:05] LABS: Hemoglobin A1c 6.7 % (3.8-5.6)
== END | disposition home or self-care (01) ==
LOC: MFPLAB 08:10
PROVIDERS: Internal Medicine Endocrinology, Diabetes & Metabolism; PCP Family Medicine; Referring Provider Family Medicine; Visit Provider Family Medicine
DX: E11.21 Type 2 diabetes mellitus with diabetic nephropathy (principal); E78.2 Mixed hyperlipidemia; E04.1 Nontoxic single thyroid nodule
CPT/HCPCS: 36415; 80048; 80061; 82043; 82306; 82570; 83036; 83970; 84450; 84460; 85025

== ENCOUNTER → 2022-05-26 | Outpatient (CLI) | payer MEDICARE, OTHER, SELFPAY ==
[2018-06-17 15:46] VITALS: BMI 24.5
[2022-05-26 09:03] LABS: Hemoglobin A1c 6.9 % (3.8-5.6)
[2022-05-26 09:19] LABS: AST(SGOT) 16 U/L (15-37); Alanine Aminotransfer ALT/SGPT 22 U/L (16-61); Albumin, Serum 3.9 g/dL (3.2-5.0); Alkaline Phosphatase 61 U/L (45-117); Anion Gap 6 (5-15); BUN 23 mg/dL (7-18); BUN/Creat Ratio 16.8 RATIO (10-20); Bilirubin, Direct 0.17 mg/dL (0.00-0.30); Calcium,Total 8.9 mg/dL (8.5-10.1); Chloride 108 mmol/L (98-107); Cholesterol 179 mg/dL (200); Creatinine, Serum 1.37 mg/dL (0.70-1.30); EST Glomerular Filtration Rate 55 mL/min (>60); Est Glom Filt Rate - Afr Amer 66 mL/min (>60); Globulin 3.6 g/dL (2.2-4.2); Glucose 180 mg/dL (74-106); High Density Lipoprotein 36 mg/dL; Potassium 4.6 mmol/L (3.5-5.1); Protein, Total 7.5 g/dL (6.4-8.2); Sodium Level 140 mmol/L (136-145); Triglycerides 138 mg/dL; Very Low Density Lipoprotein 28 mg/dL (5-40)
== END | disposition home or self-care (01) ==
LOC: LAB 07:58
PROVIDERS: Nurse Practitioner Family; PCP Family Medicine; Referring Provider Internal Medicine Endocrinology, Diabetes & Metabolism; Visit Provider Internal Medicine Endocrinology, Diabetes & Metabolism
DX: E11.21 Type 2 diabetes mellitus with diabetic nephropathy (principal); I10 Essential (primary) hypertension; E78.2 Mixed hyperlipidemia
CPT/HCPCS: 36415; 80048; 80061; 80076; 83036

== ENCOUNTER → 2022-08-14 | Outpatient (CLI) | payer MEDICARE, OTHER, SELFPAY ==
[2018-06-17 15:46] VITALS: BMI 24.5
[2022-08-14 12:20] LABS: Absolute Lymphocyte Count 1.35 X10^3/uL (0.83-4.51); Absolute Neutrophil Count 2.9 X10^3/uL (2.0-7.7); Basophil# 0.06 X10^3/uL; Basophil% 1.2 % (0-1); Eosinophil# 0.13 X10^3/uL; Eosinophils% 2.6 % (0-5); Hematocrit 38.2 % (40-54); Hemoglobin 13.1 g/dL (13.0-16.5); Lymphocyte # 1.35 X10^3/ul (0.83-4.51); Lymphocyte % 27.5 % (19-41); Mean Corp Hgb Conc 34.3 g/dL (32-36); Mean Corpuscular Hgb 31.3 pg (27.0-32.0); Mean Corpuscular Volume 91.2 fL (80-94); Mean Platelet Vol. 9.7 fl (6.2-12.0); Monocyte# 0.45 X10^3/uL; Monocyte% 9.2 % (0-10); NRBC Flagged by Analyzer 0 % (0-5); Neutrophil # 2.91 X10^3/uL (2.7-7.7); Neutrophil % 59.3 % (47-70); Platelet Count 226 K/mm3 (150-450); RBC Distribution Width CV 12.4 % (11.6-14.6); RBC Distribution Width SD 40.8 fl (35.1-43.9); Red Blood Count 4.19 M/mm3 (4.6-6.2); White Blood Count 4.9 K/mm3 (4.4-11.0)
[2022-08-14 12:44] LABS: PTHIN 39.7 pg/mL (18.4-80.1)
[2022-08-14 12:50] LABS: Vitamin D,25 Hydroxy 37.8 ng/mL
[2022-08-14 13:08] LABS: AST(SGOT) 20 U/L (15-37); Alanine Aminotransfer ALT/SGPT 24 U/L (16-61); Albumin, Serum 3.8 g/dL (3.2-5.0); Alkaline Phosphatase 65 U/L (45-117); Anion Gap 6 (5-15); BUN 29 mg/dL (7-18); BUN/Creat Ratio 18.1 RATIO (10-20); Calcium,Total 8.7 mg/dL (8.5-10.1); Chloride 108 mmol/L (98-107); Cholesterol 169 mg/dL (200); EST Glomerular Filtration Rate 46 mL/min (>60); Est Glom Filt Rate - Afr Amer 55 mL/min (>60); Globulin 3.7 g/dL (2.2-4.2); Glucose 140 mg/dL (74-106); High Density Lipoprotein 33 mg/dL; Phosphorus 2.8 mg/dL (2.5-4.9); Protein, Total 7.5 g/dL (6.4-8.2); Sodium Level 139 mmol/L (136-145); Thyroid Stim Hormone (TSH) 2.32 uIU/mL (0.358-3.74); Triglycerides 93 mg/dL; Very Low Density Lipoprotein 19 mg/dL (5-40)
[2022-08-14 13:10] LABS: Hemoglobin A1c 7.1 % (3.8-5.6)
== END | disposition home or self-care (01) ==
LOC: MFPLAB 11:26
PROVIDERS: PCP Family Medicine; Visit Provider Family Medicine
DX: E11.22 Type 2 diabetes mellitus with diabetic chronic kidney disease (principal); N18.30 Chronic kidney disease, stage 3 unspecified
CPT/HCPCS: 36415; 80053; 80061; 81001; 82043; 82306; 82570; 83036; 83970; 84100; 84156; 84443; 85025

== ENCOUNTER 2022-09-16 16:03 | Outpatient (CLI) | payer MEDICARE, OTHER, SELFPAY ==
[2018-06-17 15:46] VITALS: BMI 24.5
--- NOTE | 2022-09-16 | LES_PTH ---
PATIENT: KALI NICHOLS LOC: [facility] U#:[id number] AGE/SX: 66/M ROOM: RE09/16/[address]: Dr. Cedrick Bruce MD : 1955 BED: DIS: 09/16/2022 SPEC #: [id number] RECD: 09/17/22 09:00 STATUS: REBEL HAYDEN #: [id number] FRANKLYN: 09/16/22 00:[address]: Cedrick Bruce DEPT: SURGICAL PATHOLOGY RECD BY: Edwin Dang ENTERED: 09/17/22 09:00 SP TYPE: Lesion OTHR DR: Dr. Richie Menjivar MD Tissues: A - Skin of back, NOS B - Skin of neck, NOS Procedures: Surgery Specimen Level III Surgery Specimen Level IV HEADER OPERATION: Excision of lesions on back and left neck PRE-OP DIAGNOSIS: Skin lesions on back and left neck TISSUE SUBMITTED: A - Back, B - Neck left MICROSCOPIC DIAGNOSIS A. Back lesion, excisional biopsy: Neurofibroma. See comment. B. Left neck lesion, excision: Epidermal inclusion cyst. Solar elastosis. SJ:rg 09/18/2022 COMMENT A. Immunohistochemistry ([id number]) supports the above diagnosis. The lesion is completely excised in the planes of sections examined. MICROSCOPIC DESCRIPTION Slides are reviewed. GROSS DESCRIPTION A - Received in fixative is one container labeled with the patient's name and designated back. The specimen consists of an ellipse of yoo skin measuring 1.2 x 0.5 x 1.1 cm. The cutaneous surface displays an exophytic yoo lesion measuring 0.6 cm in greatest dimension. The specimen is inked, bisected and totally submitted in one cassette. B - Received in fixative is one container labeled with the patient's name and designated left neck. The specimen consists of an ellipse of light pink-yoo excised skin measuring 2.5 x 1.1 x 0.5 cm. The specimen is inked and serially sectioned to reveal a cystic yoo lesion measuring 1.0 cm in greatest dimension. The specimen is serially sectioned and totally submitted in one cassette. / AM:addison 09/17/2022 TC:1 CPT: 14826, 37762
--- NOTE | 2022-09-18 | IMM_PTH ---
PATIENT: KALI NICHOLS LOC: [facility] U#:[id number] AGE/SX: 66/M ROOM: RE09/16/[address]: Dr. Cedrick Bruce MD : 1955 BED: DIS: 09/16/2022 SPEC #: [id number] RECD: 09/18/22 13:26 STATUS: REBEL REQ #: [id number] FRANKLYN: 09/18/22 00:[address]: Cedrick Bruce DEPT: IMMUNOHISTOCHEMISTRY RECD BY: Bonny Rodriguez ENTERED: 09/18/22 13:30 SP TYPE: IMMUNO OTHR DR: Dr. Richie Menjivar MD Tissues: A - Skin of back, NOS Procedures: SMA (add) CD31 (add) CD34 (add) DESMIN (add) KI-67 (add) FACTOR VIII (add) MELAN-A (add) Vimentin (initial) S-100 (add) PHYSICIAN & INSTITUTION [address] [address] SPECIMEN INFORMATION: Tissue Source: A - Back Clinical Info: Back lesion Specimen Number: [id number] CPT code: 22363, 50367 x8 METHODOLOGY: Deparaffinized sections of prefer/formalin-fixed tissue or PAP/DQ stained slides are incubated with monoclonal/polyclonal antibodies/oligonucleotide probes. Localization is made via biotin free immunoperoxidase method. Appropriate controls are performed and reacted as expected. Results on target cell population are indicated in the following table: RESULTS: ANTIBODY / CLONE RESULT Block A Vimentin (V9) positive CD31 (NAV/70A) negative Factor VIII (R Ag) negative CD34 (QBEnd-10) negative Actin (1A4) negative Desmin (CE-R-11) negative Melan A (A103) negative S-100 (4C4.9) positive Ki-67 (30-9) negative, very low, <1% These tests were developed and their performance characteristics determined by [facility]. They may not have been cleared or approved by the U.S. Food and Drug Administration. The FDA has determined that such clearance or approval is not necessary. The above immunohistochemical/dualISH markers are ordered and reviewed by the Pathologist. INTERPRETATION: A. Back lesion, excisional biopsy: Neurofibroma. OSCAR:addison 09/21/2022
== END 2022-09-16 23:59 | disposition home or self-care (01) ==
PROVIDERS: PCP Family Medicine; Referring Provider Surgery; Visit Provider Surgery
DX: D36.10 Benign neoplasm of peripheral nerves and autonomic nervous system, unspecified (principal); L57.8 Other skin changes due to chronic exposure to nonionizing radiation; L72.0 Epidermal cyst
CPT/HCPCS: 88304; 88305; 88341; 88342

== ENCOUNTER → 2022-09-25 | Outpatient (CLI) | payer MEDICARE, OTHER, SELFPAY ==
[2018-06-17 15:46] VITALS: BMI 24.5
[2022-09-25 12:54] LABS: Protein, Urine (Random) 9.3 mg/dL (<11.9); Protein:Creat Ratio 73 mg/g CRE (0-200)
[2022-09-25 13:09] LABS: AST(SGOT) 16 U/L (15-37); Alanine Aminotransfer ALT/SGPT 30 U/L (16-61); Albumin, Serum 3.8 g/dL (3.2-5.0); Alkaline Phosphatase 77 U/L (45-117); Anion Gap 5 (5-15); BUN 21 mg/dL (7-18); BUN/Creat Ratio 14.1 RATIO (10-20); Calcium,Total 8.8 mg/dL (8.5-10.1); Chloride 105 mmol/L (98-107); Creatinine, Serum 1.49 mg/dL (0.70-1.30); EST Glomerular Filtration Rate 50 mL/min (>60); Est Glom Filt Rate - Afr Amer 60 mL/min (>60); Glucose 194 mg/dL (74-106); Potassium 4.7 mmol/L (3.5-5.1); Protein, Total 7.8 g/dL (6.4-8.2); Sodium Level 136 mmol/L (136-145)
== END | disposition home or self-care (01) ==
LOC: MFPLAB 10:37
PROVIDERS: PCP Family Medicine; Visit Provider Family Medicine
DX: I25.10 Atherosclerotic heart disease of native coronary artery without angina pectoris (principal)
CPT/HCPCS: 80053; 82570; 84156

== ENCOUNTER → 2022-11-25 | Outpatient (CLI) | payer MEDICARE, OTHER, SELFPAY ==
[2018-06-17 15:46] VITALS: BMI 24.5
[2022-11-25 12:20] LABS: Color, Urine Yellow (Yellow); Glucose, Dipstick Normal (Normal); Ketone-Dipstick Negative (Negative); Leukocyte Esterase-Dipstick Negative /ul (Negative); Nitrite-Dipstick Negative (Negative); Occult Blood-Urine Negative /ul (Negative); Protein-Dipstick 15 mg/dl (Negative); Urine Bilirubin Dipstick Negative (Negative); Urine Clarity Clear (Clear); Urine Urobilinogen Normal (Normal)
[2022-11-25 12:21] LABS: Absolute Lymphocyte Count 1.17 X10^3/uL (0.83-4.51); Absolute Neutrophil Count 3.3 X10^3/uL (2.0-7.7); Basophil# 0.04 X10^3/uL; Basophil% 0.8 % (0-1); Eosinophil# 0.11 X10^3/uL; Eosinophils% 2.2 % (0-5); Hematocrit 38.3 % (40-54); Hemoglobin 13.2 g/dL (13.0-16.5); Lymphocyte # 1.17 X10^3/ul (0.83-4.51); Lymphocyte % 23.3 % (19-41); Mean Corp Hgb Conc 34.5 g/dL (32-36); Mean Corpuscular Hgb 30.4 pg (27.0-32.0); Mean Corpuscular Volume 88.2 fL (80-94); Mean Platelet Vol. 9.9 fl (6.2-12.0); Monocyte# 0.44 X10^3/uL; Monocyte% 8.8 % (0-10); NRBC Flagged by Analyzer 0 % (0-5); Neutrophil # 3.25 X10^3/uL (2.7-7.7); Neutrophil % 64.7 % (47-70); Platelet Count 224 K/mm3 (150-450); Red Blood Count 4.34 M/mm3 (4.6-6.2)
[2022-11-25 12:36] LABS: Bacteria 0 SEEN /hpf (None Seen); Mucous, Urine 0 SEEN /hpf (<or=2+); Red Blood Cells-Urine 0 SEEN /hpf (0-5); Squamous Epithelial Cells - UA 0 SEEN /hpf (0-5); White Blood Cells 0 SEEN /hpf (0-5)
[2022-11-25 12:50] LABS: ALB/GLOB Ratio 1.1 RATIO (0.9-2.4); AST(SGOT) 17 U/L (15-37); Alanine Aminotransfer ALT/SGPT 30 U/L (16-61); Alkaline Phosphatase 61 U/L (45-117); Anion Gap 5 (5-15); BUN 25 mg/dL (7-18); BUN/Creat Ratio 16.6 RATIO (10-20); Calcium,Total 8.8 mg/dL (8.5-10.1); Chloride 112 mmol/L (98-107); Cholesterol 171 mg/dL (200); Creatinine, Serum 1.51 mg/dL (0.70-1.30); EST Glomerular Filtration Rate 49 mL/min (>60); Est Glom Filt Rate - Afr Amer 59 mL/min (>60); Globulin 3.6 g/dL (2.2-4.2); Glucose 173 mg/dL (74-106); High Density Lipoprotein 39 mg/dL; Potassium 4.4 mmol/L (3.5-5.1); Protein, Total 7.6 g/dL (6.4-8.2); Sodium Level 140 mmol/L (136-145); Triglycerides 111 mg/dL; Very Low Density Lipoprotein 22 mg/dL (5-40)
[2022-11-25 12:57] LABS: Microalbumin,Random Urine 21.1 mg/L (NO RANGE EST.); Microalbumin:Creatinine Ratio 15.6 mg/g CRE (<30 mg/g CRE); Protein, Urine (Random) 9.7 mg/dL (<11.9); Protein:Creat Ratio 72 mg/g CRE (0-200)
[2022-11-25 14:13] LABS: Hemoglobin A1c 6.9 % (3.8-5.6)
== END | disposition home or self-care (01) ==
LOC: MTLAB 09:48
PROVIDERS: PCP Family Medicine; Referring Provider Internal Medicine Endocrinology, Diabetes & Metabolism; Visit Provider Internal Medicine Endocrinology, Diabetes & Metabolism
DX: E11.21 Type 2 diabetes mellitus with diabetic nephropathy (principal); E11.22 Type 2 diabetes mellitus with diabetic chronic kidney disease; I12.9 Hypertensive chronic kidney disease with stage 1 through stage 4 chronic kidney disease, or unspecified chronic kidney disease; N18.9 Chronic kidney disease, unspecified; E78.2 Mixed hyperlipidemia; I25.10 Atherosclerotic heart disease of native coronary artery without angina pectoris
CPT/HCPCS: 80053; 80061; 81001; 82043; 82570; 83036; 84156; 85025

== ENCOUNTER → 2023-06-18 | Outpatient (CLI) | payer MEDICARE, OTHER, SELFPAY ==
[2018-06-17 15:46] VITALS: BMI 24.5
[2023-06-18 11:06] LABS: AST(SGOT) 20 U/L (15-37); Alanine Aminotransfer ALT/SGPT 35 U/L (16-61); Anion Gap 4 (5-15); BUN 18 mg/dL (7-18); BUN/Creat Ratio 11.3 RATIO (10-20); Calcium,Total 9.1 mg/dL (8.5-10.1); Chloride 109 mmol/L (98-107); Creatinine, Serum 1.59 mg/dL (0.70-1.30); EST Glomerular Filtration Rate 46 mL/min (>60); Est Glom Filt Rate - Afr Amer 56 mL/min (>60); Glucose 203 mg/dL (74-106); Potassium 4.6 mmol/L (3.5-5.1); Sodium Level 138 mmol/L (136-145)
[2023-06-18 14:04] LABS: Hemoglobin A1c 7.4 % (3.8-5.6)
== END | disposition home or self-care (01) ==
PROVIDERS: PCP Family Medicine; Referring Provider Internal Medicine Endocrinology, Diabetes & Metabolism; Visit Provider Internal Medicine Endocrinology, Diabetes & Metabolism
DX: I10 Essential (primary) hypertension (principal); E11.21 Type 2 diabetes mellitus with diabetic nephropathy; E78.2 Mixed hyperlipidemia
CPT/HCPCS: 36415; 80048; 83036; 84450; 84460

== ENCOUNTER 2023-07-15 17:30 | Outpatient (RCR) | payer SELFPAY ==
[2018-06-17 15:46] VITALS: BMI 24.5
== END 2023-07-20 23:59 ==
LOC: NS 17:30
PROVIDERS: PCP Family Medicine
DX: Z71.3 Dietary counseling and surveillance (principal)

== ENCOUNTER → 2023-08-06 | Outpatient (CLI) | payer MEDICARE, OTHER, SELFPAY ==
[2018-06-17 15:46] VITALS: BMI 24.5
[2023-08-06 10:33] LABS: AST(SGOT) 17 U/L (15-37); Alanine Aminotransfer ALT/SGPT 30 U/L (16-61); Albumin, Serum 4.1 g/dL (3.2-5.0); Alkaline Phosphatase 64 U/L (45-117); Bilirubin, Direct 0.17 mg/dL (0.00-0.30); Cholesterol 167 mg/dL (200); Globulin 3.4 g/dL (2.2-4.2); High Density Lipoprotein 37 mg/dL; Protein, Total 7.5 g/dL (6.4-8.2); Triglycerides 117 mg/dL; Very Low Density Lipoprotein 23 mg/dL (5-40)
== END | disposition home or self-care (01) ==
LOC: LAB 09:32
PROVIDERS: PCP Family Medicine; Referring Provider Nurse Practitioner Family; Visit Provider Nurse Practitioner Family
DX: I25.10 Atherosclerotic heart disease of native coronary artery without angina pectoris (principal); E11.9 Type 2 diabetes mellitus without complications; E78.2 Mixed hyperlipidemia
CPT/HCPCS: 36415; 80061; 80076

== ENCOUNTER → 2023-08-24 | Outpatient (CLI) | payer MEDICARE, OTHER, SELFPAY ==
[2018-06-17 15:46] VITALS: BMI 24.5
[2023-08-24 14:25] LABS: Bacteria 0 SEEN /hpf (None Seen); Mucous, Urine 0 SEEN /hpf (<or=2+); Red Blood Cells-Urine 0 SEEN /hpf (0-5); Squamous Epithelial Cells - UA 0 SEEN /hpf (0-5); White Blood Cells 0 SEEN /hpf (0-5)
[2023-08-24 18:00] LABS: Absolute Lymphocyte Count 1.71 X10^3/uL (0.83-4.51); Absolute Neutrophil Count 4.1 X10^3/uL (2.0-7.7); Basophil# 0.06 X10^3/uL; Basophil% 0.9 % (0-1); Eosinophil# 0.13 X10^3/uL; Hematocrit 38.6 % (40-54); Hemoglobin 12.9 g/dL (13.0-16.5); Lymphocyte # 1.71 X10^3/ul (0.83-4.51); Lymphocyte % 25.9 % (19-41); Mean Corp Hgb Conc 33.4 g/dL (32-36); Mean Corpuscular Hgb 29.9 pg (27.0-32.0); Mean Corpuscular Volume 89.6 fL (80-94); Mean Platelet Vol. 10.4 fl (6.2-12.0); Monocyte# 0.54 X10^3/uL; Monocyte% 8.2 % (0-10); NRBC Flagged by Analyzer 0 % (0-5); Neutrophil # 4.13 X10^3/uL (2.7-7.7); Neutrophil % 62.7 % (47-70); Platelet Count 226 K/mm3 (150-450); RBC Distribution Width SD 39.3 fl (35.1-43.9); Red Blood Count 4.31 M/mm3 (4.6-6.2); White Blood Count 6.6 K/mm3 (4.4-11.0)
[2023-08-24 18:19] LABS: Color, Urine Yellow (Yellow); Glucose, Dipstick Normal (Normal); Ketone-Dipstick Negative (Negative); Leukocyte Esterase-Dipstick Negative /ul (Negative); Nitrite-Dipstick Negative (Negative); Occult Blood-Urine Negative /ul (Negative); Protein-Dipstick Negative (Negative); Urine Bilirubin Dipstick Negative (Negative); Urine Clarity Clear (Clear); Urine Urobilinogen Normal (Normal)
[2023-08-24 18:24] LABS: PTHIN 53.5 pg/mL (18.4-80.1)
[2023-08-24 18:36] LABS: ALB/GLOB Ratio 1.2 RATIO (0.9-2.4); AST(SGOT) 25 U/L (15-37); Alanine Aminotransfer ALT/SGPT 27 U/L (16-61); Albumin, Serum 4.1 g/dL (3.2-5.0); Alkaline Phosphatase 61 U/L (45-117); Anion Gap 5 (5-15); BUN 32 mg/dL (7-18); BUN/Creat Ratio 16.8 RATIO (10-20); Calcium,Total 9.1 mg/dL (8.5-10.1); Chloride 106 mmol/L (98-107); Cholesterol 161 mg/dL (200); Creatinine, Serum 1.91 mg/dL (0.70-1.30); EST Glomerular Filtration Rate 37 mL/min (>60); Est Glom Filt Rate - Afr Amer 45 mL/min (>60); Globulin 3.4 g/dL (2.2-4.2); Glucose 186 mg/dL (74-106); High Density Lipoprotein 36 mg/dL; Magnesium 2.3 mg/dL (1.6-2.6); Phosphorus 3.3 mg/dL (2.5-4.9); Potassium 4.7 mmol/L (3.5-5.1); Protein, Total 7.5 g/dL (6.4-8.2); Sodium Level 135 mmol/L (136-145); Triglycerides 107 mg/dL; Very Low Density Lipoprotein 21 mg/dL (5-40)
[2023-08-24 19:05] LABS: Hemoglobin A1c 7.1 % (3.8-5.6)
[2023-08-27 18:44] LABS: Microalbumin,Random Urine 19.5 mg/L (NO RANGE EST.); Microalbumin:Creatinine Ratio 9.2 mg/g CRE (<30 mg/g CRE); Protein, Urine (Random) 10.5 mg/dL (<11.9); Protein:Creat Ratio 50 mg/g CRE (0-200)
== END | disposition home or self-care (01) ==
LOC: MFPLAB 14:24
PROVIDERS: PCP Family Medicine; Visit Provider Family Medicine
DX: E11.22 Type 2 diabetes mellitus with diabetic chronic kidney disease (principal); E55.9 Vitamin D deficiency, unspecified; I25.10 Atherosclerotic heart disease of native coronary artery without angina pectoris; N18.9 Chronic kidney disease, unspecified
CPT/HCPCS: 36415; 80053; 80061; 81001; 82043; 82306; 82570; 83036; 83735; 83970; 84100; 84156; 85025

== ENCOUNTER 2023-09-07 08:12 | Emergency (ER) | payer MEDICARE, OTHER, SELFPAY ==
[2018-06-17 15:46] VITALS: BMI 24.5
[2023-09-07 08:12] VITALS: BP 141/85; PULSE 59; RESP 14; TEMP 36.2; O2SAT 98; BMI 23.4
--- NOTE | 2023-09-07 08:35 | EX.ED.DYSGE1 ---
HPI History of Present Illness Chief Complaint: Dizziness Detail of Chief Complaint: Vertigo last evening, this morning upon arising and changing position Informant: patient and spouse/S.O. Onset/Context/Timing Onset: Today and Yesterday Context: Sudden Onset Timing: Intermittent Quality: Spinning sensation Location: Vertigo Current Severity: Gone Maximum Severity: Severe Worsened by: Rising from bed this morning and rising from floor last evening Relieved by: Remaining still in supine position with eyes closed Associated Symptoms Associated Symptoms: Diaphoresis, nausea and vomiting Narrative Narrative: Patient is a 67-year-old male with history of coronary disease with placement of stent June 17, 2018 mid LAD, diabetic neuropathy, essential hypertension who presents with abrupt intermittent vertigo that started last evening. He states he was lying on the floor. When he lily from the floor he had spinning sensation. This morning upon awakening when he stood up from bed he became dizzy, which she defines as a spinning sensation that was associated with nausea vomiting diaphoresis. Presently patient has no symptoms. He denies headache yesterday or today. He denied double vision, blurred vision, change in vision or partial loss of vision. He denies trouble with speech or swallowing. Denies problems with fine motor coordination. He denies cardiac or respiratory symptoms. Only GI symptoms were nausea and vomiting. He denies black or maroon-colored stool. He denies lightheadedness. Patient's diabetic medication was recently changed. He states has had trouble since he was prescribed/dispensed the generic form. Prior similar symptoms: No Recent Illness/Hospitalization: No PFSH PFSH Medical History Essential hypertension severe arthritis of wrists Atherosclerotic heart disease of [place] coronary artery without angina pectoris Abnormal stress test Chronic low back pain Patent foramen ovale GERD (gastroesophageal reflux disease) CVA (cerebral vascular accident) CKD (chronic kidney disease) Type 2 diabetes mellitus Mixed hyperlipidemia Mobitz type 1 second degree AV block Hyperlipidemia Diabetic neuropathy Home Medications ?Medication ?Instructions ?Recorded ?Last Taken ?Type meloxicam 15 mg tablet 15 mg PO DAILY 06/17/18 06/17/18 08:00 History aspirin 81 mg chewable tablet 81 mg PO DAILY@0800 06/18/18 Unknown Rx saxagliptin 5 mg tablet 5 mg PO DAILY 06/02/19 Unknown History pantoprazole 40 mg tablet,delayed 40 mg PO DAILY #90 tabs 08/20/21 Unknown Rx release ezetimibe 10 mg tablet (Zetia) 10 mg PO DAILY #90 tabs 12/28/22 Unknown Rx diazepam 2 mg tablet (Valium) 2 mg PO TID #9 tabs 09/07/23 Unknown Rx ondansetron 4 mg disintegrating 4 mg PO Q8H PRN PRN Nausea #10 tabs 09/07/23 Unknown Rx tablet Allergy/AdvReac Type Severity Reaction Status Date / Time etodolac (Etodolac) Allergy Intermediate Hives Verified 09/07/23 08:13 atorvastatin AdvReac Severe myalgias Verified 09/07/23 08:13 lisinopril AdvReac Severe heart Verified 09/07/23 08:13 burn, cough metformin AdvReac Severe Nausea Verified 09/07/23 08:13 simvastatin AdvReac Severe myalgias Verified 09/07/23 08:13 lansoprazole (From Prevacid) AdvReac Intermediate Diarrhea Verified 09/07/23 08:13 losartan AdvReac Mild fatigue, Verified 09/07/23 08:13 not feel well rosuvastatin AdvReac Mild Other Verified 09/07/23 08:13 Family History Mother CHF (congestive heart failure) CAD (coronary artery disease) Brother Hypertension Diabetes Myocardial infarction Surgical History History of left heart catheterization (06/17/18) Stented coronary artery (06/17/18) History of foot surgery Social History (Updated 09/07/23 @ 08:[address] Ajith Montemayor MD) household members: spouse Smoking Status: Never smoker alcohol intake: current details: Rare substance use type: does not use ROS ROS ED Eyes Eyes: Denies blurry vision, change in vision or diplopia ENT ENT ED: Denies sore throat Cardiovascular Cardiovascular: Denies chest pain, palpitations or paroxysmal nocturnal dyspnea Respiratory/Chest Respiratory/Chest: Denies cough, dyspnea on exertion or paroxysmal nocturnal dyspnea Gastrointestinal Gastrointestinal: Reports nausea and vomiting; Denies abdominal pain or melena Musculoskeletal Musculoskeletal: Denies arthralgias, back pain, myalgias or neck pain Neurologic Neurologic: Denies headache(s), paresthesias or weakness Hematologic/Lymphatic Hematologic/Lymphatic: Reports systems reviewed and no addt'l complaints, except as documented Allergic/Immunologic Allergic/Immunologic ED: Denies mouth swelling, tongue swelling or urticaria EXAM Physical Exam Const Vital Signs: 09/07/23 08:12 09/07/23 10:12 09/07/23 10:21 Temperature 97.2 F L 97.0 F L 97.0 F L Temperature Source Temporal Temporal Pulse Rate 59 L 61 61 Respiratory Rate 14 16 16 Blood Pressure 141/85 H 142/78 H 142/78 H Blood Pressure Mean 103 99 99 Pulse Ox 98 96 96 Oxygen Delivery Method Room Air Room Air Positive well nourished and well developed General Appearance ED: well developed and NAD; Negative for pallor HEENT Reports moist mucous membranes HEENT Narrative: Head is atraumatic and normocephalic. Ears are normal. Nares are patent. Posterior pharynx not erythema or exudate. Uvula is midline. There is no deviation with protrusion. Eyes PERRL and EOMs intact bilaterally Eyes Narrative: There is no nystagmus General Eye ED: Yes pale conjunctiva and scleral icterus Neck supple and no JVD Resp normal respiratory effort and clear to auscultation bilaterally Cardio regular rate, regular rhythm, S1 normal heart sound, S2 normal heart sound and no murmurs Back/Spine Back/Spine Narrative: Inspection of the back is normal. Extremity normal to inspection Extremity Narrative: Patient does have hair on his toes. Distal pulses are palpable. Neuro oriented x3, CN's II-XII intact bilaterally and no sensory deficits noted Neuro Narrative: Gait was observed as patient walked back from triage to his room. He does not have ataxic gait. There is no dysmetria. Romberg with eyes open and closed was normal. The eye is skew and head test were negative. Dali-Hallpike cause minimal symptoms. There is no obvious nystagmus. Patient has no clonus or Babinski sign. Sensorium / Orientation: alert Motor Exam: strength 5/5 throughout Psych mental status grossly normal Skin no rashes or lesions noted, no wounds and skin turgor normal General Skin Exam: elasticity normal; Negative for pallor MDM MDM MDM Narrative Medical decision making narrative: Differential diagnosis is peripheral versus central vertigo. Based on history equivocal Hallpike maneuver and the fact that his symptoms resolved with Edilma maneuver suspect patient has benign paroxysmal positional vertigo. Most likely this is bilateral. Total time to perform Edilma maneuver 10 minutes. Nurse was asked to ambulate patient to determine if he has return of symptoms. My opinion there is no indication for laboratory testing or CT at this point History & Record Review Additional record(s) reviewed:: Prior inpatient record (Cardiac cath May 20182018 revealed lesion mid LAD which was the cause of his symptoms and required stent.), Prior ED visit and Prior labs Lab Data Attestation: I reviewed the patient's lab results. Lab results narrative: Creatinine is 1.45 with a GFR 51 which is improved compared to prior. Glucose is elevated 223 with a normal CO2 and anion gap. Labs: Laboratory Results - last 24 hr 09/07/23 08:50 Sodium 139 Potassium 4.3 Chloride 109 H Carbon Dioxide 24.0 Anion Gap 6 BUN 30 H Creatinine 1.45 H Estim Creat Clear Calc 51.21 Est GFR (MDRD) Af Amer 62 Est GFR (MDRD) Non-Af 51 L BUN/Creatinine Ratio 20.7 H Glucose 223 H Calcium 9.1 Treatment and Re-Evaluation :: I was informed after patient was able to my nurse that he became diaphoretic had nausea vomiting and recurrent vertigo. IV was established. BMP was obtained since he is diabetic to assess his glucose CO2 anion gap and creatinine/renal function since she has history of chronic kidney disease.IV was established. He received 4 mg of Zofran for nausea vomiting and 2 mg of Valium for vertigo. He was reassessed at 0952. He is informed of his laboratory results. Creatinine is 1.45 with an estimated GFR of 51. His prior GFR's have varied from 30-45 approximately. Will have nurse ambulate again. If he is able to ambulate without recurrence of symptoms will discharge with prescription for Zofran and Valium. Patient was ambulated at approximately 1005. He complained of feeling drowsy. He was reassessed at 1024. He has no symptoms this time. Will discharge with prescription for Valium and Zofran. Discharge Plan Triage Chief Complaint: Dizziness ED Provider: Ajith Montemayor Dx/Rx/DC Orders Clinical Impression: Benign paroxysmal positional vertigo, bilateral, CKD (chronic kidney disease), Atherosclerotic heart disease of [place] coronary artery without angina pectoris, Essential hypertension, Mixed hyperlipidemia, Type 2 diabetes mellitus with hyperglycemia Instructions: ED BPV Vertigo Prescriptions: New ondansetron 4 mg tablet,disintegrating 4 mg PO Q8H PRN PRN (Reason: Nausea) Qty: 10 0RF diazepam [Valium] 2 mg tablet 2 mg PO TID Qty: 9 0RF No Action saxagliptin 5 mg tablet 5 mg PO DAILY meloxicam 15 MG tablet 15 mg PO DAILY aspirin 81 MG tablet,chewable 81 mg PO DAILY@0800 0RF pantoprazole 40 mg tablet,delayed release (DR/EC) 40 mg PO DAILY Qty: 90 3RF ezetimibe [Zetia] 10 mg tablet 10 mg PO DAILY Qty: 90 3RF Primary Care Provider: Richie Menjivar Referrals: Richie Menjivar MD [Primary Care Provider] - As Needed Print Language: Persian Disposition Disposition: Home, Self Care
[2023-09-07] MEDS: diazePAM 2 MG Tablet PO (08:58)
[2023-09-07] MEDS: Ondansetron 4 MG/2 ML Vial IV (08:58)
[2023-09-07 09:47] LABS: Anion Gap 6 (5-15); BUN 30 mg/dL (7-18); BUN/Creat Ratio 20.7 RATIO (10-20); Calcium,Total 9.1 mg/dL (8.5-10.1); Chloride 109 mmol/L (98-107); Creatinine, Serum 1.45 mg/dL (0.70-1.30); EST Glomerular Filtration Rate 51 mL/min (>60); Est Glom Filt Rate - Afr Amer 62 mL/min (>60); Estimated Creatinine Clearance 51.21 ml/min; Glucose 223 mg/dL (74-106); Potassium 4.3 mmol/L (3.5-5.1); Sodium Level 139 mmol/L (136-145)
[2023-09-07 10:12] VITALS: BP 142/78; PULSE 61; RESP 16; TEMP 36.1; O2SAT 96
[2023-09-07 10:21] VITALS: BP 142/78; PULSE 61; RESP 16; TEMP 36.1; O2SAT 96
== END 2023-09-07 10:43 | disposition home or self-care (01) ==
PROVIDERS: Emergency Provider Emergency Medicine; PCP Family Medicine; Referring Provider Emergency Medicine; Visit Provider Emergency Medicine
DX: H81.13 Benign paroxysmal vertigo, bilateral (principal); E11.65 Type 2 diabetes mellitus with hyperglycemia; E11.22 Type 2 diabetes mellitus with diabetic chronic kidney disease; E11.40 Type 2 diabetes mellitus with diabetic neuropathy, unspecified; N18.9 Chronic kidney disease, unspecified; E78.2 Mixed hyperlipidemia; I12.9 Hypertensive chronic kidney disease with stage 1 through stage 4 chronic kidney disease, or unspecified chronic kidney disease; I25.10 Atherosclerotic heart disease of native coronary artery without angina pectoris; Z86.73 Personal history of transient ischemic attack (TIA), and cerebral infarction without residual deficits; Z95.5 Presence of coronary angioplasty implant and graft
CPT/HCPCS: 80048; 96374; 99283; A4216; J2405

== ENCOUNTER → 2023-12-15 | Outpatient (CLI) | payer MEDICARE, OTHER, SELFPAY ==
[2018-06-17 15:46] VITALS: BMI 24.5
--- NOTE | 2023-12-15 06:48 | ECHOD_ITS ---
Reason For Study: CAD/ASHD Procedure This was a 2D Doppler, Color Flow transthoracic echocardiogram. Exam performed in department. Left Ventricle Normal LV size. Left ventricular systolic function is normal. The left ventricular ejection fraction is 60 %. Stage 1 diastolic dysfunction. No regional wall motion abnormalities noted. Right Ventricle Normal RV size. Normal systolic function. Atria Normal left atrium. Normal right atrium. Mitral Valve Bileaflet diffuse mitral valve thickening. Tricuspid Valve Normal tricuspid valve. Mild (1+) tricuspid valve insufficiency. Aortic Valve Trisinus/trileaflet aortic valve. Mild focal aortic valve calcification. Pulmonic Valve Normal pulmonic valve. Great Vessels Normal aortic root. The pulmonary artery is normal size. Inferior vena cava collapse with respiration. Pericardium/Pleural No pericardial effusion. MMode/2D Measurements & Calculations LVIDd: 4.5 cm IVSd: 1.2 cm LVOT diam: 2.1 cm LVIDs: 2.8 cm LVPWd: 0.94 cm LVOT area: 3.3 cm2 RVDd: 4.0 cm FS: 37.0 % Ao root diam: 3.4 cm asc Aorta Diam: 3.5 cm LAV(MOD-bp): 42.5 ml LA dimension: 3.9 cm LAV(MOD-bp) Indexed: 21.7 ml/m2 LAV(MOD-sp2): 40.9 ml LAV(MOD-sp4): 41.9 ml Ao sinus diam: 3.4 cm LA A4 area: 15.7 cm2 RA A4 area: 13.0 cm2 Time Measurements MV dec time: 0.31 sec Doppler Measurements & Calculations MV E max mike: 79.1 cm/sec Lat Peak E' Mike: 6.9 cm/sec Med Peak E' Mike: 7.4 cm/sec MV A max mike: 85.1 cm/sec E/E' lat: 11.5 E/E' med: 10.7 MV E/A: 0.93 MV V2 max: 89.1 cm/sec MV P1/2t max mike: 78.4 cm/sec Ao V2 max: 111.8 cm/sec MV max P.2 mmHg MV P1/2t: 101.8 msec Ao max P.2 mmHg MV V2 mean: 52.4 cm/sec MV dec slope: 225.6 cm/sec2 Ao V2 mean: 78.0 cm/sec MV mean P.3 mmHg Ao mean P.8 mmHg MV V2 VTI: 28.0 cm MVA(P1/2t): 2.2 cm2 Ao V2 VTI: 25.7 cm MVA(VTI): 2.1 cm2 AV (velocity ratio): 0.70 REGINE(I,D): 2.3 cm2 REGINE(V,D): 2.1 cm2 LV V1 max: 71.6 cm/sec SV(LVOT): 60.0 ml PA V2 max: 80.0 cm/sec LV V1 max P.1 mmHg PA max PG (full): 0.67 mmHg LV V1 mean P.2 mmHg LV V1 mean: 50.4 cm/sec LV V1 VTI: 18.0 cm PI end-d mike: 112.2 cm/sec TR max mike: 189.9 cm/sec TR max P.4 mmHg ECHO/Echo Complete Interpretation Summary Normal LV size. Left ventricular systolic function is normal. The left ventricular ejection fraction is 60 %. Stage 1 diastolic dysfunction. Ordering Physician: Gianni Benites Referring Physician: Gianni Benites Performed By: Gatito Rehman and Student
--- NOTE | 2023-12-15 15:41 | STRESSREP ---
Stress Test Report Exercise myocardial perfusion stress test. 68-year-old man with a history of coronary artery disease Stress protocol: Resting EKG demonstrates sinus bradycardia with a rate of 46 bpm and Wenckebach periodicity. resting blood pressure is 124/74 mmHg. The patient exercised according to the regular Jorge protocol for a total duration of 9 minutes and 31 seconds attaining a maximum heart rate of 139 bpm which was 92% of maximum predicted heart rate; the maximum workload was 11.7 metabolic equivalents. At rest there were no ST or T wave changes noted to suggest ischemia and at peak exercise upsloping ST changes only were noted which did not meet the criteria for ischemia. No clinical angina was noted the test was terminated due to the target heart rate being achieved/fatigue. The peak blood pressure was 180/70 mmHg. Rate-pressure product was 23,400. Myocardial perfusion protocol. 11 mCi of technetium 99m sestamibi was injected at rest. The patient exercised according to regular Jorge protocol for total duration of 9-1/2-minute and at peak exercise 35.7 mCi of technetium 99m sestamibi was injected stress images were obtained stress and rest images were reconstructed in comparing the short axis vertical long and horizontal long axis. Gated images were also obtained. Perfusion SPECT analysis: Review of the stress images demonstrate normal uptake of tracer noted in all areas of the myocardium. The resting images similarly demonstrate normal uptake of tracer noted in all areas of the myocardium. No areas of reversibility are noted to suggest ischemia no previous infarct was noted. Gated SPECT analysis: The gated ejection fraction is 68%. Conclusion: Normal exercise myocardial perfusion stress test at a high workload Preserved ejection fraction. Wenckebach periodicity noted
== END | disposition home or self-care (01) ==
LOC: CVS 06:47
PROVIDERS: PCP Family Medicine; Referring Provider Internal Medicine Cardiovascular Disease; Visit Provider Internal Medicine Cardiovascular Disease
DX: I25.10 Atherosclerotic heart disease of native coronary artery without angina pectoris (principal)
CPT/HCPCS: 78452; 93017; 93306; A9500; A4216

== ENCOUNTER → 2023-12-21 | Outpatient (CLI) | payer MEDICARE, OTHER, SELFPAY ==
[2018-06-17 15:46] VITALS: BMI 24.5
[2023-12-21 11:25] LABS: Microalbumin,Random Urine 13.8 mg/L (NO RANGE EST.); Microalbumin:Creatinine Ratio 13.4 mg/g CRE (<30 mg/g CRE)
[2023-12-21 11:30] LABS: Hemoglobin A1c 7.1 % (3.8-5.6)
[2023-12-21 11:32] LABS: AST(SGOT) 15 U/L (15-37); Alanine Aminotransfer ALT/SGPT 24 U/L (16-61); Albumin, Serum 3.9 g/dL (3.2-5.0); Alkaline Phosphatase 71 U/L (45-117); Anion Gap 4 (5-15); BUN 22 mg/dL (7-18); BUN/Creat Ratio 15.5 RATIO (10-20); Bilirubin, Direct 0.13 mg/dL (0.00-0.30); Calcium,Total 9.4 mg/dL (8.5-10.1); Chloride 109 mmol/L (98-107); Cholesterol 170 mg/dL (200); Creatinine, Serum 1.42 mg/dL (0.70-1.30); EST Glomerular Filtration Rate 52 mL/min (>60); Est Glom Filt Rate - Afr Amer 63 mL/min (>60); Globulin 3.5 g/dL (2.2-4.2); Glucose 208 mg/dL (74-106); High Density Lipoprotein 38 mg/dL; Potassium 4.4 mmol/L (3.5-5.1); Protein, Total 7.4 g/dL (6.4-8.2); Sodium Level 138 mmol/L (136-145); Triglycerides 119 mg/dL; Very Low Density Lipoprotein 24 mg/dL (5-40)
== END | disposition home or self-care (01) ==
LOC: LAB 09:10
PROVIDERS: PCP Family Medicine; Referring Provider Nurse Practitioner Family; Visit Provider Nurse Practitioner Family
DX: I10 Essential (primary) hypertension (principal); E11.21 Type 2 diabetes mellitus with diabetic nephropathy; E78.2 Mixed hyperlipidemia
CPT/HCPCS: 36415; 80048; 80061; 80076; 82043; 82570; 83036

== ENCOUNTER → 2024-06-23 | Outpatient (CLI) | payer MEDICARE, OTHER, SELFPAY ==
[2018-06-17 15:46] VITALS: BMI 24.5
[2024-06-23 10:10] LABS: Hemoglobin A1c 8.8 % (<=5.6)
[2024-06-23 10:16] LABS: AST(SGOT) 19 U/L (<=37); Alanine Aminotransfer ALT/SGPT 14 U/L (<=46); Albumin, Serum 4.3 g/dL (3.4-4.8); Alkaline Phosphatase 103 U/L (40-129); Anion Gap 11 (5-15); BUN 20 mg/dL (4-19); BUN/Creat Ratio 15.1 RATIO (10-20); Bilirubin, Direct 0.21 mg/dL (0.00-0.30); Calcium,Total 9.7 mg/dL (7.6-11.0); Carbon Dioxide 23.4 mmol/L (21.0-32.0); Chloride 105 mmol/L (98-108); Cholesterol 146 mg/dL (<=200); Creatinine, Serum 1.32 mg/dL (0.70-1.20); EST Glomerular Filtration Rate 58 (>60); Globulin 3.5 g/dL (2.2-4.2); Glucose 108 mg/dL (70-99); High Density Lipoprotein 39 mg/dL; Low Density Lipoprotein Calc. 92 mg/dL; Potassium 4.7 mmol/L (3.3-5.1); Protein, Total 7.8 g/dL (5.9-8.4); Sodium Level 139 mmol/L (133-145); Total Bilirubin 0.47 mg/dL (0.00-1.30); Triglycerides 73 mg/dL; Very Low Density Lipoprotein 15 mg/dL (5-40); cholesterol:hdl ratio screen 3.72
== END | disposition home or self-care (01) ==
PROVIDERS: Nurse Practitioner Family; PCP Family Medicine; Referring Provider Nurse Practitioner Family; Visit Provider Nurse Practitioner Family
DX: E11.21 Type 2 diabetes mellitus with diabetic nephropathy (principal); E78.2 Mixed hyperlipidemia; M25.50 Pain in unspecified joint; W57.XXXA Bitten or stung by nonvenomous insect and other nonvenomous arthropods, initial encounter
CPT/HCPCS: 36415; 80048; 80061; 80076; 83036; 86617

== ENCOUNTER 2024-08-08 09:00 | Outpatient (RCR) | payer MEDICARE, OTHER, SELFPAY ==
[2018-06-17 15:46] VITALS: BMI 24.5
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
--- NOTE | 2024-08-08 10:01 | HP.PTDCSUM_ITS ---
Discharge Summary D/C summary: It has been my pleasure to treat KALI NICHOLS referred by Dr. Johnnie Xiong MD, with the diagnosis of Acute B shoulder pain, R buttock pain for a total of 6 visit(s). Discharge Date: 08/08/24 Please see the following information for a summary of their discharge status. Subjective Subjective: Pt. reports overall not much different. Pt. reports increased pain in B shoulders. He reports rolling over in bed is very painful in his shoulders. Pain Lumbar spine: Pain Intensity (Out of 10): 4 B arms: Pain Intensity (Out of 10): 4 Objective Objective/Function: PROM: R shoulder: flexion 165deg mild increase NW, abd 165deg increase NW, ER at 90deg of abd 70deg increase nW, IR at 90deg of abd 50deg tightness. L shoulder: flexion 170deg, abd 170deg, ER at 90deg 100deg, IR at 90deg of abd 50deg. AROM: R shoulder flexion 140deg increase NW starting at 90deg, abd 120deg increase NW starting at 90deg., functional ER C3 increase NW, functional IR gluteal region increase NW. L shoulder: flexion 150deg mild increase NW, abd 150deg mild increase NE, functional ER C4 mild increase nW, functional IR L1 NE. ROM: LUMBAR: flexion min loss, ext min/mod loss, SB min.mod loss bilat, rotation min loss bilat. MMT: Pt. has decent strength in BUEs. 5/5 throughout, except ER on R side 4/5 increase nW, abd 4/5 in R increase NW, IR 5/5 bilat, ext 5/5 bilat. Pt. still has high levels of pain with any OH movements. Pt. reports not much improvement with therapy. After talking with him and his significant other (whom reports he is still having a lot of pain with all movements, he is using heating pad frequently throughout the day) we decided to go back to physician to deter mine best course of action. Goals Goal 1:: LTG: pt. to be I with HEP. Goal Progress: Goal Met Goal 2:: STG: pt. to be able to sit for at least 30'+ without increase in B LE symptoms. Goal Progress: Progressing Goal 3:: LTG: Pt. have at least 80% of his B shoulder ROM without increase in symptoms. Goal Progress: Not Progressing Goal 4:: LTG: Pt. to have 5/5 strength in BUEs without increase in symptoms. Goal 5:: LTG: Pt. have at least 80% of lumbar ROM without increase in symptoms. Goal Progress: Not Progressing Plan Plan: 1) B shoulder RTC strengthening, deltoid strengthening, med trap strengthening 2) lumbar ROM (initially flexion), piriformis stretching 3) neutral spine core stability D/C Information Discharge Comments: Pt. has not had much improvement with his shoulders with PT. I would suggest returning to physician to determine if further imaging vs testing is needed. d/c sentence: If there are questions or concerns regarding this patient's physical therapy, please feel free to call me at [phone]. Thank you for the referral of this patient. Sincerely, Derek Dangelo, DPT Balance/Gait/Functional tests Balance/Special Test Scores Quick DASH Score: [phone]
== END 2024-08-08 12:40 | disposition home or self-care (01) ==
LOC: PT 09:00
PROVIDERS: PCP Family Medicine; Referring Provider Family Medicine; Visit Provider Family Medicine
DX: M25.511 Pain in right shoulder (principal); M25.512 Pain in left shoulder; M79.18 Myalgia, other site
CPT/HCPCS: 97110; 97161; 97530

== ENCOUNTER 2024-11-08 10:30 | Outpatient (RCR) | payer OTHER, MEDICARE, SELFPAY ==
[2018-06-17 15:46] VITALS: BMI 24.5
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
--- NOTE | 2024-11-08 11:27 | HP.PTDCSUM ---
Discharge Summary D/C summary: It has been my pleasure to treat KALI NICHOLS referred by Dr. Sammy Morgan DO, with the diagnosis of ROTATOR CUFF DISORDER ,RIGHT for a total of 9 visit(s). Discharge Date: 11/08/24 Please see the following information for a summary of their discharge status. Subjective Subjective: Most limited with IR Cand do ex's at at home Pain Right Scapula: Pain Intensity (Out of 10): 4 Overall Improvement % Improvement: 25 Objective Objective/Function: POSTURE: mild forward posture rounded shoulders NEURO: denies paresthesia/tingling PALAPTION: unremarkable AROM: shoulder flexion 142 degrees ,abduction 145 degrees ,ER 90 degrees ,IR L1 CAPSULAR : mild/mod limited MMT: RTC 4/5 ,DELTOID 4-/5 Goals Goal 1:: Patient to be I with HEP Goal Progress: Goal Met Goal 2:: Patient to improve AROM shoulder flexion /abduction by 150 degrees ,ER 90 AND reaching behind back L1 for function Goal Progress: Goal Met Goal 3:: Patient to improve shoulder oswestry score by 5 points to improve QOL and function Goal Progress: Goal Met Goal 4:: Patient to demonstrate 50% improvement with ADLS and housework tasks with improved ROM Goal Progress: Progressing Goal 5:: Patient be able to reach in cupboard and put on coat reach behind back with min limitations with less pain Goal Progress: Goal Met Plan Plan: D/C TO HEP D/C Information Discharge Comments: HEP d/c sentence: If there are questions or concerns regarding this patient's physical therapy, please feel free to call me at [phone]. Thank you for the referral of this patient. Sincerely, Arnold Mason, PT, Cert MDT, OCS Balance/Gait/Functional tests Balance/Special Test Scores Quick DASH Score: 22.7250 Improvement % Improvement: 25
== END 2024-11-08 19:00 | disposition home or self-care (01) ==
LOC: PT 10:30
PROVIDERS: PCP Family Medicine; Referring Provider Family Medicine; Visit Provider Family Medicine
DX: M67.911 Unspecified disorder of synovium and tendon, right shoulder (principal)
CPT/HCPCS: 97110; 97140; 97162; 97530

== ENCOUNTER → 2024-11-08 | Outpatient (CLI) | payer MEDICARE, OTHER, SELFPAY ==
[2018-06-17 15:46] VITALS: BMI 24.5
[2024-11-08 10:31] LABS: AST(SGOT) 20 U/L (<=37); Alanine Aminotransfer ALT/SGPT 16 U/L (<=46); Anion Gap 12 (5-15); BUN 24 mg/dL (4-19); BUN/Creat Ratio 17.4 RATIO (10-20); Calcium,Total 9.3 mg/dL (7.6-11.0); Carbon Dioxide 21.7 mmol/L (21.0-32.0); Chloride 107 mmol/L (98-108); Glucose 159 mg/dL (70-99); Potassium 4.4 mmol/L (3.3-5.1)
== END | disposition home or self-care (01) ==
PROVIDERS: PCP Family Medicine; Referring Provider Internal Medicine Endocrinology, Diabetes & Metabolism; Visit Provider Internal Medicine Endocrinology, Diabetes & Metabolism
DX: E11.65 Type 2 diabetes mellitus with hyperglycemia (principal)
CPT/HCPCS: 36415; 80048; 83036; 84450; 84460